=== PATIENT | female | born 1980 | race Caucasian/White ===

== ENCOUNTER → 2016-05-16 | Outpatient (CLI) | payer OTHER ==
[~2016-05-16] MED LIST: ACETAMINOPHEN-H1 TA2 PO; AMOXICILLIN500 MG PO; CIPRO250 MG PO; CLARITIN10 MG PO; DAYPRO600 M1 PO; EPI EZ PEN1 MG/ML IM; FAMOTIDINE20 M1 PO; FIRST-PROGESTE100 MG VG; FIRST-PROGESTE200 MG V; GLUCOPHAGE500 MG PO; HYDR25T PO; HYDROCHLOROTHIA25 MG PO; HYDROCODONE BIT1 T11 PO; LISINOPRIL-HYDR1 TA3 PO; LOMOTIL 0.025 M1 TA1 PO; MEDROL DOSEPAK4 MG PO; METFORMIN500 MG PO; MOTRIN800 MG PO; Motrin,Rufen800 MG PO; NASONEX0.05 MG/AC NAS; NORCO 10-325 T1 EACH PO; NORVASC5 MG PO; PERCOCET 325 MG1 TA5 PO; PERCOCET 325 MG1 TA6 PO; PRENATAL1 TA1 PO; SALETO800 MG PO; SYNTHROID25 MCG PO; ULTRAM50 MG PO; VASOTEC5 MG PO; VICODIN 5/500 505 MG PO; VICODIN 500 MG-1 TAB PO; ZITHROMAX Z PA250 MG PO; ZOFRAN ODT4 MG SL; ZOFRAN4 MG PO; Zofran4 MG PO
--- NOTE | ~2016-05-16 | O ---
[place], [place] OPERATIVE NOTE NAME: [facility]ARCIA [id number] UNIT #: [id number] ROOM: DOCTOR: CARISSA MIN MD BIRTHDATE: [birth year] DOS: 05/23/2016 PREOPERATIVE DIAGNOSES: 1. Desires fertility termination. 2. BMI 48. POSTOPERATIVE DIAGNOSES: 1. Desires fertility termination. 2. BMI 48. OPERATION: Laparoscopic bilateral tubal banding. SURGEON: Carissa Min M.D. ANESTHESIA: General. ESTIMATED BLOOD LOSS: Minimal. REPLACEMENTS: IV fluids. COMPLICATIONS: There were no complications. CONDITION: The patient's condition to recovery stable. OPERATIVE SUMMARY: The patient was taken to the operating room in supine position, general anesthesia, endotracheal intubation, lithotomy position, prepped and draped in routine manner. Catheter was placed within the bladder straight drain. Cervix was grasped with a tenaculum and a cervical manipulator placed. Infraumbilical and suprapubic incisions were made using a longer 5 mm trocar sleeve and laparoscope under direct visualization. This was inserted and CO2 was insufflated. We were able to then introduce a suprapubic 8 mm trocar and sleeve and once this was placed, we examined the pelvis and noted that the uterus itself was overall normal in size and configuration mobility. Anterior and posterior cul-de-sacs were normal. All supporting structures were normal. Tubes and ovaries otherwise were normal. Her ability to evaluate internal laparoscope superiorly was severely compromised due to the BMI, but her gross overall examination of the upper abdomen was within normal limits. At that point, we then introduced through our suprapubic port, the parking ramp attendant because technically we did not feel we were going to be able to perform the bilateral salpingectomy. To that end, we were able to grasp a portion of each fallopian tube in its mid ampullary region. Good knock of tube elevated into the parking ramp attendant and bands placed. Having completed the banding and the survey, we removed the suprapubic trocar sleeve and parking ramp attendant and noted no excessive anterior abdominal bleeding. CO2 was allowed to escape, followed by removal of the infraumbilical trocar sleeve and laparoscope. Each incision was closed with subcuticular 3-0 Monocryl suture. Steri-Strips placed and dressings placed. Instrumentation was removed from the vagina and noting no excessive vaginal bleeding. We removed the instrumentation as well as the catheter. The patient was then cleaned off, taken out of lithotomy position, awakened, extubated, and transferred to recovery in stable condition with stable vital signs, good hemostasis and stable [place], [place] OPERATIVE NOTE NAME: JODIE GARCIA UNIT #: [id number] ROOM: DOCTOR: CARISSA MIN MD BIRTHDATE: [birth year] sponge and instrument count. CARISSA MIN MD CM:OPRECORD:OPERATIVE NOTE [id number] CARISSA MIN MD 05/31/16 1352 ADAM [email or web address].R
--- NOTE | ~2016-05-16 | WRIGHTHP ---
[place], [place] PATIENT HISTORY AND PHYSICAL EXAM NAME: JODIE GARCIA UNIT #: [id number] ROOM: DOCTOR: CARISSA BANERJEE MD BIRTHDATE: [birth year] DOS: DATE OF SURGERY: 05/23/2016. HISTORY OF PRESENT ILLNESS: The patient is a 36-year-old white female, 8, para 3, AB 5 just having completed another miscarriage in April with a D and C on 04/29 who also has a history of an enlarged liver, asthma, PCOS. Is on numerous medications including medication for hypertension as well who was seen in the office on 05/17/2016, quite distraught about having a fifth miscarriage and this one particularly difficult and that they had seen the fetus, but had not been able to detect heartbeat. The patient was quite broken up by this, but really had decided in the past but even now says that enough is enough and would like to proceed with some definitive formal control i.e., sterilization. We reviewed the risks, benefits, indications, potential complications, and alternatives and they called recommendations. Understanding was stated and she did sign a consent for either bilateral tubal banding more bilateral partial salpingectomy. PAST MEDICAL HISTORY: As I said it does reveal 8 pregnancies, three living children, one vaginal delivery and 2 by section as well as miscarriages and then the recent D and C. She has had a cholecystectomy in December 2015, tonsillectomy, lumpectomy in the left breast, 04/29, which actually revealed a benign ulcerated hemangioma. She has a history of asthma. SOCIAL HISTORY: She does not smoke or drink. ALLERGIES: She has no known allergies. MEDICATIONS: The patient is taking several medications including albuterol sulfate HFA ____ solution. She is taking metformin 500 mg extended release daily for her PCOS. Labetalol, clonidine, metoprolol and Norvasc have all been discontinued at this time and the only meds she is taking are the albuterol and metformin. REVIEW OF SYSTEMS: Otherwise stable. FAMILY HISTORY: Reveals her mother to be alive and having a diagnosis of congestive heart failure and cardiomyopathy. She does have a history of an NC as well as diabetes. She has maternal grandfather who has a history of gastric cancer. PHYSICAL EXAMINATION: GENERAL: Reveals a pleasant white female. She is 5 feet 4 inches, 280 pounds, BMI is 48.1. VITAL SIGNS: Blood pressure 136/72 and she is in no significant distress. HEENT: Stable. NECK: Stable. LUNGS: Stable. CARDIAC: Stable. BREASTS: Stable. [place], [place] PATIENT HISTORY AND PHYSICAL EXAM NAME: JODIE GARCIA UNIT #: [id number] ROOM: DOCTOR: CARISSA BANERJEE MD BIRTHDATE: [birth year] ABDOMEN: Consistent with BMI and she has quite a panniculus, but this does reduce and I think we would be able to command underneath this panniculus to be able to perform our procedure as well as using infraumbilical site. The abdomen is nontender. EXTREMITIES: Grossly intact. NEUROLOGIC: Grossly intact. GENITOURINARY: External genitalia, vagina and cervix normal. Uterus is anteverted and anteflexed, normal size, configuration, nontender, and mobile. Adnexa negative. RECTAL: Deferred. ASSESSMENT: 1. The patient who desires sterilization. 2. Significant increase in BMI. 3. Status post recurrent x5. PLAN: The patient will undergo a laparoscopic either bilateral tubal banding or bilateral salpingectomy on 05/23/2015. CARISSA BANERJEE MD CM:HISPHYS:PATIENT HISTORY AND PHYSICAL EXAMINATION 1404 [id number] CARISSA BANERJEE MD 05/31/16 1352 ADAM NEGRETE MIS.LLR
== END | disposition home or self-care (01) ==
LOC: LAB 16:56
DX: O03.9 Complete or unspecified spontaneous abortion without complication (principal); Z3A.00 Weeks of gestation of pregnancy not specified

== ENCOUNTER → 2016-05-23 | Day surgery (SDC) | payer OTHER ==
[~2016-05-23] VITALS: Ht 162.5 cm; Wt 127.0 kg
--- NOTE | ~2016-05-23 | O ---
[place], [place] OPERATIVE NOTE NAME: [id number] UNIT #: [id number] ROOM: DOCTOR: CARISSA MIN MD BIRTHDATE: [birth year] DOS: 05/23/2016 PREOPERATIVE DIAGNOSES: 1. Desires fertility termination. 2. BMI 48. POSTOPERATIVE DIAGNOSES: 1. Desires fertility termination. 2. BMI 48. OPERATION: Laparoscopic bilateral tubal banding. SURGEON: Carissa Min M.D. ANESTHESIA: General. ESTIMATED BLOOD LOSS: Minimal. REPLACEMENTS: IV fluids. COMPLICATIONS: There were no complications. CONDITION: The patient's condition to recovery stable. OPERATIVE SUMMARY: The patient was taken to the operating room in supine position, general anesthesia, endotracheal intubation, lithotomy position, prepped and draped in routine manner. Catheter was placed within the bladder straight drain. Cervix was grasped with a tenaculum and a cervical manipulator placed. Infraumbilical and suprapubic incisions were made using a longer 5 mm trocar sleeve and laparoscope under direct visualization. This was inserted and CO2 was insufflated. We were able to then introduce a suprapubic 8 mm trocar and sleeve and once this was placed, we examined the pelvis and noted that the uterus itself was overall normal in size and configuration mobility. Anterior and posterior cul-de-sacs were normal. All supporting structures were normal. Tubes and ovaries otherwise were normal. Her ability to evaluate internal laparoscope superiorly was severely compromised due to the BMI, but her gross overall examination of the upper abdomen was within normal limits. At that point, we then introduced through our suprapubic port, the tele rn because technically we did not feel we were going to be able to perform the bilateral salpingectomy. To that end, we were able to grasp a portion of each fallopian tube in its mid ampullary region. Good knock of tube elevated into the tele rn and bands placed. Having completed the banding and the survey, we removed the suprapubic trocar sleeve and tele rn and noted no excessive anterior abdominal bleeding. CO2 was allowed to escape, followed by removal of the infraumbilical trocar sleeve and laparoscope. Each incision was closed with subcuticular 3-0 Monocryl suture. Steri-Strips placed and dressings placed. Instrumentation was removed from the vagina and noting no excessive vaginal bleeding. We removed the instrumentation as well as the catheter. The patient was then cleaned off, taken out of lithotomy position, awakened, extubated, and transferred to recovery in stable condition with stable vital signs, good hemostasis and stable [place], [place] OPERATIVE NOTE NAME: JODIE GARCIA UNIT #: [id number] ROOM: DOCTOR: CARISSA MIN MD BIRTHDATE: [birth year] sponge and instrument count. CARISSA MIN MD CM:OPRECORD:OPERATIVE NOTE [id number] CARISSA MIN MD 05/31/16 1352 interface
[2016-05-23 13:32] VITALS: BP 108/71
[2016-05-23 13:47] VITALS: BP 133/62
[2016-05-23 14:02] VITALS: BP 120/62
[2016-05-23 14:17] VITALS: BP 118/64
[2016-05-23 14:32] VITALS: BP 125/53
[2016-05-23 14:47] VITALS: BP 118/56
== END | disposition home or self-care (01) ==
LOC: SDC 05-19 07:47
DX: Z30.2 Encounter for sterilization (principal); I10 Essential (primary) hypertension; J45.909 Unspecified asthma, uncomplicated; Z83.3 Family history of diabetes mellitus; Z82.49 Family history of ischemic heart disease and other diseases of the circulatory system; Z80.0 Family history of malignant neoplasm of digestive organs; Z68.42 Body mass index [BMI] 45.0-49.9, adult

== ENCOUNTER 2018-01-23 17:29 | Inpatient (IN) | payer OTHER ==
[~2018-01-23] VITALS: Ht 162.5 cm; Wt 132.0 kg
--- NOTE | ~2018-01-23 | CON ---
[place], [place] REPORT OF CONSULTATION NAME: JODIE GARCIA UNIT #: [id number] ROOM: 401 DOCTOR: KELLEY NOGUEIRA MD BIRTHDATE: [birth year] DOS: 01/24/2018 HISTORY OF PRESENT ILLNESS: This is a 37-year-old patient who has presented with chief complaint of abdominal pain and lower back pain, 3-month history of diarrhea, out of her control, multiple soiling of her underwear, nocturnal element as well. The patient has been admitted with white blood cell of 10, H and H of 13 and 39. Her lipase is normal. Comprehensive metabolic panel with glucose level elevation to 250, otherwise LFTs, chemistry, BUN and creatinine within normal limits. Her hemoglobin A1c is greater than 7. Lumbar spine, no acute finding. CT scan of the abdomen and pelvis, no acute finding. Hepatic steatosis has been noticed. There is a round region of increased density measuring 4.5 cm in average in dimension anterolaterally in the right lobe and 7 mm at the anterior dome of the right hepatic lobe, these are unchanged from past examination, splenomegaly mildly, and no evidence of pathology in the pancreas. There is an unchanged 2.6 x 3.1 left adrenal adenoma. Her kidneys demonstrate no evidence of acute pathology. No lymphadenopathy seen. Lactic acid normal. PAST MEDICAL HISTORY: Biliary dyskinesia, chronic diarrhea, diabetes mellitus, obesity, hypertension, anxiety, amenorrhea, fatty steatosis of the liver, and splenomegaly, all have been noticed. PAST SURGICAL HISTORY: , tonsillectomy, and cholecystectomy. SOCIAL HISTORY: Social drinker, nonsmoker, nonalcohol consumer. FAMILY HISTORY: Noncontributory. ALLERGIES: To no known medications. MEDICATIONS: Medication list at home including lisinopril, hydrochlorothiazide, levothyroxine, and Lexapro was noticed. REVIEW OF SYSTEMS: In general, HEENT: Denies double vision, blurred vision. RESPIRATORY: Denies acute shortness of breath. CARDIOVASCULAR: Denies acute chest pain. DIGESTIVE SYSTEM: Abdominal pain, bloating, diarrhea, and epigastric distress, all have been recognized. PHYSICAL EXAMINATION: VITAL SIGNS: Stable, nontoxic patient; however, in distress. HEENT: Head normocephalic, nontraumatic. Mouth and buccal mucosa benign. NECK: Supple. No thyromegaly, no cervical lymphadenopathy. CHEST: Symmetric anatomy, equal expansion. No wheeze, no rhonchi. HEART: Normal sinus rhythm. No gallop, no murmur. ABDOMEN: Soft. No hepato-organomegaly. Obese. Bowel sounds present. No pulsatile mass. No rebound effect. EXTREMITIES: 1+ edema was noticed. NEUROLOGIC: Fully alert, oriented to time, place, and person. [place], [place] REPORT OF CONSULTATION NAME: JODIE GARCIA UNIT #: [id number] ROOM: 401 DOCTOR: JERO BRANTLEY,KELLEY BIRTHDATE: [birth year] IMPRESSION: Abdominal pain, diarrhea of 3 months' duration, 7-8 times a day, uncontrollable, and nocturnal element. Other adjunctive diagnoses of fatty liver, splenomegaly, hypothyroidism, anxiety, and hypertension, all have been recognized. Other adjunctive diagnoses as outlined in the paragraph of past medical and surgical history. PLAN AND DISCUSSION: Awaiting C. diff results; if it is negative by tomorrow, then we are going to prep her for EGD and colonoscopy by Monday. KELLEY NOGUEIRA MD CM:CONSTR:REPORT OF CONSULTATION 16 01/25/18 0638 interface
--- NOTE | ~2018-01-23 | O ---
[place], [place] OPERATIVE NOTE NAME: JODIE GARCIA UNIT #: [id number] ROOM: 401 DOCTOR: JERO BRANTLEYMIKEYMIGUE BIRTHDATE: [birth year] DOS: 01/26/2018 HISTORY OF PRESENT ILLNESS: This is a 37-year-old patient who presented with chief complaint of epigastric pain, dyspepsia, abdominal pain. Study is most including hematologic stool study as well as radiologic studies including CT scan of the abdomen. All has been negative. Again, except moderate hepatic steatosis and hepatomegaly as expected and splenomegaly as well, unchanged foci in the liver, still the same consistent with benign findings and most likely has to do with focal nodular hyperplasia and ovarian cyst. PROCEDURE: Today's procedure part of investigation is panendoscopy and colonoscopy. PREMEDICATION: Propofol. SCOPE: Olympus forward-viewing gastroscope Q10 video. REPORT: After putting the patient in left lateral position and application of lubricant to the scope, the scope was introduced. Thereafter, under direct visualization, I advanced through the length of esophagus without difficulty. Gastric pouch was entered. Evidence of bile reflux gastritis seen. Duodenal bulb, second and third part within normal limits. Antral biopsy obtained. The patient extubated, tolerated the procedure well. IMPRESSION: Bile reflux gastritis. PLAN AND DISCUSSION: At the present time, we are going to use Protonix 40 mg daily and if her symptomatology persists, we are going to consider prokinetics. On the other hand, we are concerned that she has diarrhea for past 3 months and that's under investigation or can progress. I am going to proceed with colonoscopy evaluation. PROCEDURE: Today's procedure part of investigation of diarrhea, colonoscopy plus biopsy. PREMEDICATION: Propofol. SCOPE: Olympus forward-viewing colonoscope 10L video. REPORT: After putting the patient in left lateral position and application of lubricant to the scope, the scope was introduced. Thereafter, under direct visualization, I advanced through the length of colon without difficulty. Colon mucosa and vascularity carefully examined. No acute pathology identified throughout the length of the entire colon. Scope was negotiated to base of cecum, ileocecal valve and appendiceal orifice was photographed. Air was suctioned out. Random biopsies obtained to rule out collagenous colitis. The patient extubated, tolerated the procedure well. IMPRESSION: Normal colonoscopic examination, status post random biopsy ruling out infiltrating diseases. [place], [place] OPERATIVE NOTE NAME: JODIE GARCIA UNIT #: [id number] ROOM: 401 DOCTOR: JERO BRANTLEY,KELLEY BIRTHDATE: [birth year] PLAN AND DISCUSSION: At the present time until data is available. As far as tissue biopsy concern, we are going to use Questran 1 pack daily and symptomatic therapy in addition to the dicyclomine 10 mg daily and clinical reassessment. KELLEY NOGUEIRA MD CM:OPRECORD:OPERATIVE NOTE [id number] KELLEY NOGUEIRA MD 02/16/18 0933 interface
[2018-01-23 17:34] VITALS: BP 164/88
[2018-01-23 18:07] LABS: BASO # 0.1 10*3/uL (0.0-0.1); BASO % 0.5 % (0.0-1.0); EOS # 0.2 10*3/uL (0.0-0.4); EOS % 2.1 % (1.0-4.0); HEMATOCRIT 39.8 % (37.0-47.0); HEMOGLOBIN 13.2 g/dl (12.0-16.0); LYMPH % 28.5 % (27.0-41.0); MEAN CORPUSCULAR HGB 27.8 pg (27.0-31.0); MEAN CORPUSCULAR HGB CONC 33.2 g/dl (33.0-37.0); MEAN PLATELET VOLUME 10.1 fl (9.6-12.3); MONO # 0.7 10*3/uL (0.1-1.0); MONO % 6.5 % (3.0-9.0); NEUT # 6.4 10*3/uL (2.3-7.9); PLATELET COUNT AUTOMATED 286 10*3/uL (130-400); RED BLOOD COUNT 4.74 10*6/uL (4.10-5.10); RED CELL DISTRI WIDTH 14.3 % (0-14.5); WHITE BLOOD COUNT 10.4 10*3/uL (4.8-10.8)
[2018-01-23 18:23] LABS: ALBUMIN 3.3 gm/dl (3.1-4.5); ALKALINE PHOSPHATASE 105 U/L (45-117); BUN 17 mg/dl (7-24); CHLORIDE 103 mmol/L (98-107); CREATININE 0.85 mg/dL (0.55-1.02); POTASSIUM 3.9 mmol/L (3.5-5.1); SGOT/AST 20 IU/L (3-35); SGPT/ALT 35 U/L (12-78); SODIUM 139 mmol/L (136-145); TOTAL PROTEIN 7.3 gm/dL (6.4-8.2)
[2018-01-23 19:08] LABS: BILIRUBIN NEGATIVE (NEGATIVE); BLOOD NEGATIVE (NEGATIVE); CLARITY CLEAR (CLEAR); COLOR YELLOW (YELLOW); GLUCOSE 2+ (NEGATIVE); KETONE NEGATIVE (NEGATIVE); LEUKO ESTERASE NEGATIVE (NEGATIVE); NITRITE NEGATIVE (NEGATIVE); PH 5.5 (5.0-9.0); SPECIFIC GRAVITY 1.025 (1.005-1.030); UROBILINOGEN 0.2 E.U./dl (0.2-1.0)
[2018-01-23 19:15] LABS: BACTERIA 1+
[2018-01-23 19:59] VITALS: BP 117/56
[2018-01-23 21:30] VITALS: BP 135/63
[2018-01-23] MEDS ORDERED: HYDRALAZINE HYD50 MG PO (21:51)
[2018-01-23] MEDS ORDERED: LEXAPRO20 MG PO (22:00)
[2018-01-24] VITALS: BP 131/74
[2018-01-24 06:15] LABS: BASO # 0.1 10*3/uL (0.0-0.1); BASO % 0.6 % (0.0-1.0); EOS # 0.2 10*3/uL (0.0-0.4); EOS % 2.8 % (1.0-4.0); HEMATOCRIT 39.7 % (37.0-47.0); HEMOGLOBIN 12.6 g/dl (12.0-16.0); LYMPH # 3.3 10*3/uL (1.3-4.4); LYMPH % 38.2 % (27.0-41.0); MEAN CELL VOLUME 86.1 fl (81.0-99.0); MEAN CORPUSCULAR HGB 27.3 pg (27.0-31.0); MEAN CORPUSCULAR HGB CONC 31.7 g/dl (33.0-37.0); MEAN PLATELET VOLUME 10.2 fl (9.6-12.3); MONO # 0.6 10*3/uL (0.1-1.0); MONO % 6.6 % (3.0-9.0); NEUT # 4.5 10*3/uL (2.3-7.9); NEUT % 51.3 % (47.0-73.0); PLATELET COUNT AUTOMATED 250 10*3/uL (130-400); RED BLOOD COUNT 4.61 10*6/uL (4.10-5.10); RED CELL DISTRI WIDTH 14.5 % (0-14.5); WHITE BLOOD COUNT 8.7 10*3/uL (4.8-10.8)
[2018-01-24 06:29] LABS: ALKALINE PHOSPHATASE 83 U/L (45-117); BUN 20 mg/dl (7-24); CHLORIDE 107 mmol/L (98-107); CHOLESTEROL 141 mg/dL (<200); CREATININE 0.59 mg/dL (0.55-1.02); HDL CHOLESTEROL 36 mg/dl (40-60); LDL CHOLESTEROL 68 mg/dL (9-159); PHOSPHOROUS 4.2 mg/dL (2.5-4.9); POTASSIUM 4.1 mmol/L (3.5-5.1); SGOT/AST 18 IU/L (3-35); SGPT/ALT 31 U/L (12-78); SODIUM 141 mmol/L (136-145); TOTAL PROTEIN 6.5 gm/dL (6.4-8.2); TRIGLYCERIDES 184 mg/dl (<150); VLDL CHOLESTEROL 37 mg/dL (6-40)
[2018-01-24 06:48] LABS: ACT PARTIAL THROMBO TIME 26.1 SECONDS (20.8-31.5)
[2018-01-24 07:57] LABS: VITAMIN D, 25-HYDROXY 11.8 ng/mL (30-100)
[2018-01-24 16:00] VITALS: BP 134/70
[2018-01-24 20:00] VITALS: BP 110/59
[2018-01-25] VITALS: BP 111/50
[2018-01-25 06:13] LABS: BASO % 0.4 % (0.0-1.0); EOS # 0.2 10*3/uL (0.0-0.4); EOS % 2.6 % (1.0-4.0); HEMATOCRIT 34.7 % (37.0-47.0); HEMOGLOBIN 11.2 g/dl (12.0-16.0); LYMPH % 33.1 % (27.0-41.0); MEAN CELL VOLUME 85.9 fl (81.0-99.0); MEAN CORPUSCULAR HGB 27.7 pg (27.0-31.0); MEAN CORPUSCULAR HGB CONC 32.3 g/dl (33.0-37.0); MEAN PLATELET VOLUME 9.9 fl (9.6-12.3); MONO # 0.7 10*3/uL (0.1-1.0); MONO % 7.5 % (3.0-9.0); NEUT # 5.1 10*3/uL (2.3-7.9); NEUT % 55.3 % (47.0-73.0); PLATELET COUNT AUTOMATED 230 10*3/uL (130-400); RED BLOOD COUNT 4.04 10*6/uL (4.10-5.10); RED CELL DISTRI WIDTH 14.3 % (0-14.5); WHITE BLOOD COUNT 9.2 10*3/uL (4.8-10.8)
[2018-01-25 06:30] LABS: BUN 11 mg/dl (7-24); CHLORIDE 105 mmol/L (98-107); CREATININE 0.57 mg/dL (0.55-1.02); POTASSIUM 3.8 mmol/L (3.5-5.1); SODIUM 140 mmol/L (136-145)
[2018-01-25 08:00] VITALS: BP 106/50; BP 153/57
[2018-01-25 12:00] VITALS: BP 116/68
[2018-01-25 16:00] VITALS: BP 113/44
[2018-01-25 20:00] VITALS: BP 91/44
[2018-01-26] VITALS (8 sets, daily range): BP systolic 99–121; BP diastolic 48–71
[2018-01-26] MEDS ORDERED: BELSOMRA10 MG PO (20:29)
[2018-01-27] VITALS: BP 122/58
[2018-01-27 06:53] LABS: BASO % 0.5 % (0.0-1.0); EOS # 0.2 10*3/uL (0.0-0.4); EOS % 2.6 % (1.0-4.0); HEMATOCRIT 34.9 % (37.0-47.0); HEMOGLOBIN 11.1 g/dl (12.0-16.0); LYMPH # 2.7 10*3/uL (1.3-4.4); LYMPH % 36.2 % (27.0-41.0); MEAN CORPUSCULAR HGB 27.3 pg (27.0-31.0); MEAN CORPUSCULAR HGB CONC 31.8 g/dl (33.0-37.0); MEAN PLATELET VOLUME 11.1 fl (9.6-12.3); MONO # 0.6 10*3/uL (0.1-1.0); MONO % 7.7 % (3.0-9.0); NEUT # 3.9 10*3/uL (2.3-7.9); NEUT % 52.7 % (47.0-73.0); PLATELET COUNT AUTOMATED 209 10*3/uL (130-400); RED BLOOD COUNT 4.06 10*6/uL (4.10-5.10); RED CELL DISTRI WIDTH 14.1 % (0-14.5); WHITE BLOOD COUNT 7.4 10*3/uL (4.8-10.8)
[2018-01-27 07:16] LABS: BUN 8 mg/dl (7-24); CHLORIDE 108 mmol/L (98-107); CREATININE 0.53 mg/dL (0.55-1.02); POTASSIUM 3.5 mmol/L (3.5-5.1); SODIUM 141 mmol/L (136-145)
[2018-01-27] MEDS ORDERED: QUESTRAN LIGHT4 GM PO (08:17)
[2018-01-27] MEDS ORDERED: DICYCLOMINE HCL10 MG PO (08:17)
[2018-01-27] MEDS ORDERED: PROTONIX40 MG PO (10:39)
== END 2018-01-27 11:19 | disposition home or self-care (01) | DRG 392 ==
LOC: ED 17:29 → EDHOLD 20:20 → 4E 20:20
PROVIDERS: Internal Medicine; Nurse Practitioner Family
PROC: 0DBE8ZX Excision of Large Intestine, Via Natural or Artificial Opening Endoscopic, Diagnostic (ICD-10-PCS; principal; 2018-01-26)
PROC: 0DB68ZX Excision of Stomach, Via Natural or Artificial Opening Endoscopic, Diagnostic (ICD-10-PCS; principal; 2018-01-26)
DX: K29.70 Gastritis, unspecified, without bleeding (principal); E87.2 Acidosis; E44.1 Mild protein-calorie malnutrition; Z68.42 Body mass index [BMI] 45.0-49.9, adult; M54.5 Low back pain; K76.0 Fatty (change of) liver, not elsewhere classified; R16.1 Splenomegaly, not elsewhere classified; E28.2 Polycystic ovarian syndrome; I10 Essential (primary) hypertension; E03.9 Hypothyroidism, unspecified; K52.9 Noninfective gastroenteritis and colitis, unspecified; D35.01 Benign neoplasm of right adrenal gland; E04.1 Nontoxic single thyroid nodule; K76.9 Liver disease, unspecified; J42 Unspecified chronic bronchitis; F41.9 Anxiety disorder, unspecified; K21.9 Gastro-esophageal reflux disease without esophagitis; E78.1 Pure hyperglyceridemia; K82.8 Other specified diseases of gallbladder; E55.9 Vitamin D deficiency, unspecified; E11.65 Type 2 diabetes mellitus with hyperglycemia; E66.01 Morbid (severe) obesity due to excess calories; J45.909 Unspecified asthma, uncomplicated; Z79.899 Other long term (current) drug therapy; Z90.49 Acquired absence of other specified parts of digestive tract; Z90.89 Acquired absence of other organs; Z82.49 Family history of ischemic heart disease and other diseases of the circulatory system; Z81.8 Family history of other mental and behavioral disorders

== ENCOUNTER 2018-11-24 20:48 | Inpatient (IN) | payer OTHER ==
[~2018-11-24] VITALS: Ht 162.5 cm; Wt 131.9 kg
--- NOTE | ~2018-11-24 | PR ---
[place], [place] PROGRESS NOTE NAME: JODIE GARCIA UNIT #: [id number] ROOM: 515 DOCTOR: BRUCE MATA MD,KATIE BIRTHDATE: [birth year] DOS: 11/27/2018 PULMONARY PROGRESS NOTE SUBJECTIVE: The patient was seen and examined on 11/27/2017, has not been noted any ongoing acute new respiratory complaints. The patient has not been noted with any acute chest pain. Shortness of breath of the patient continues to improve progressively and gradually. The cough has been improving. The wheezing was improved markedly. OBJECTIVE: VITAL SIGNS: Normal temperature, respiratory rate 16, heart rate 66, blood pressure of 98/44. Pulse oxygen saturation recorded on BiPAP, was 98% on 2 liters nasal cannula 98% saturation. HEENT: Examination shows head was atraumatic. Eyes nonicterus. NECK: Supple. CARDIOVASCULAR: S1, S2 audible. LUNGS: The patient was noted without any wheezing or crackles at this time. Breaths are noted mildly diminished bilaterally. ABDOMEN: Soft, nontender, bowel sounds present. EXTREMITIES: No edema. IMPRESSION: Progressive and gradual resolution of acute exacerbation of bronchial asthma was noted with diagnosis of obstructive sleep apnea disorder as well. PLAN OF TREATMENT: The patient could be transferred from the ICU to the surgical floor. Decrease corticosteroids. Possible discharge in the morning depending on further improvement in respiratory symptoms. Outpatient assessment for sleep apnea and pulmonary disease will be done after discharge. KATIE BARRERA MD CM:PNCLARI [id number] KATIE MATA MD 12/05/18 0855 interface
--- NOTE | ~2018-11-24 | CON ---
[place], [place] REPORT OF CONSULTATION NAME: JODIE GARCIA UNIT #: [id number] ROOM: 515 DOCTOR: KATIE PECK MD BIRTHDATE: [birth year] DOS: 11/25/2018 PULMONARY CONSULTATION, EVALUATION, AND MANAGEMENT REASON FOR CONSULTATION: To assess the patient for acute exacerbation of bronchial asthma. HISTORY OF PRESENT ILLNESS: This is a 38-year-old white female patient reported history of seasonal bronchial asthma. She has been noted acutely ill for the past couple of weeks and has been treated with corticosteroids, antibiotics, and other medical management provided by the patient's primary care physician. The patient has not responding to the treatment and came to the Emergency Room, where she has been assessed yesterday, admitted to the hospital, this morning the patient was assessed, she has been noted significantly with severe short of breath with inability to complete sentences at this time as well with interview. She has been reported symptoms of excessive chest congestion and nonproductive cough. Denies symptoms of chest pain with that, but tightness in the chest was reported. She was complaining of excessive wheezing. She was complaining of cough without any sputum expectoration. In the Emergency Room, she was given epinephrine, DuoNeb, continue treatment, multiple other interventions were provided already. She has been admitted to the medical floor this morning of assessment. PAST MEDICAL HISTORY: Noted as: 1. History of type 2 diabetes mellitus. 2. History of morbid obesity. 3. Hepatic steatosis. 4. Essential hypertension. 5. Hypertriglyceridemia. 6. Hypothyroidism. 7. Liver lesions. 8. Polycystic ovarian syndrome. 9. History of splenomegaly. 10. Vitamin D deficiency. 11. Adrenal adenoma. 12. History of longstanding bronchial asthma stated as seasonal asthma, treated usually with bronchodilators p.r.n. use. PAST SURGICAL HISTORY: Noted as: 1. Tonsillectomy. 2. Adenoidectomy. 3. . 4. Cholecystectomy. HOME MEDICATIONS: Home medications listed as: Questran, dicyclomine, Lexapro, Synthroid, lisinopril, hydrochlorothiazide, Protonix, and Belsomra. CURRENT MEDICATIONS: Current medications administered were noted as albuterol sulfate with nebulizer, Seroquel, citalopram, hydrochlorothiazide, lisinopril, Victoza injection, vitamin D, Solu-Medrol 40 mg b.i.d., Lovenox, glipizide, [place], [place] REPORT OF CONSULTATION NAME: JODIE GARCIA UNIT #: [id number] ROOM: [facility] DOCTOR: KATIE PECK MD BIRTHDATE: [birth year] levothyroxine, Levaquin, and others. DRUG ALLERGIES: No known drug allergies. SOCIAL HISTORY: The patient has been . She has 3 children, lives at home. She is a nonsmoker lifetime. There was no history of alcohol use or any illicit drugs. FAMILY HISTORY: The patient's father of suicide. Mother has been noted with history of cardiomyopathy and reported age of 5858 years old. REVIEW OF SYSTEMS: CONSTITUTIONAL SYMPTOMS: Fatigue and tiredness noted without any symptoms of fever or chills. EYES: Denies any burning, redness, or tenderness. EAR, NOSE, AND THROAT SYMPTOMS: No sore throat, hoarseness, otalgia, postnasal drainage, or epistaxis. CARDIOVASCULAR SYSTEM: Denies angina pain, edema, or pain of the lower extremities. GASTROINTESTINAL SYMPTOMS: No dysphagia, nausea, vomiting, diarrhea, abdominal pain, hematemesis, melena, or hematochezia. SKIN: Denies lesions or rashes. CENTRAL NERVOUS SYSTEM: No dizziness, headache, diplopia, or syncopal episodes. Remaining systems were reviewed and they were noted all negative. PHYSICAL EXAMINATION: GENERAL: The patient is a 38-year-old white female noted with respiratory distress this morning of assessment on side of the bed. Height of 5 feet 4 inches, weight of 131 kilograms, and BMI of 49.9. VITAL SIGNS: Vital signs of the patient, normal temperature, respiratory rate of 24, heart rate of 130 with sinus tachycardia, and blood pressure of 120/84. Pulse oxygen saturation is recorded on 2 liters nasal cannula is 95% saturation. HEENT: On examination, head was atraumatic. Eyes nonicterus. NECK: Supple. Decreased posterior pharyngeal space, high tongue base, and crowding of soft tissue structures. CARDIOVASCULAR SYSTEM: S1, S2 is audible. LUNGS: Diffuse expiratory wheezing, decreased air exchange. ABDOMEN: Soft, nontender. Bowel sounds present. EXTREMITIES: Noted without any acute edema. MUSCULOSKELETAL: Noted without any acute deformities. CENTRAL NERVOUS SYSTEM: Cranial nerves 2-12 intact. LABORATORY DATA: PT and INR yesterday were noted as normal. CMP yesterday, glucose is 234, normal BUN and creatinine, and potassium is 3.4. CBC yesterday, WBC count is 18.2, hemoglobin and hematocrit normal, and 42% lymphocytes. Lactic acid was noted as 3.5 and elevated, progressive later on. CBC that was done on 11/25/2018, WBC count is 11.5, hemoglobin and hematocrit normal. BMP, BUN is 70, creatinine is 1.04, glucose is 369, this morning CO2 was 18. The CBC this morning, WBC count is 11.5, hemoglobin and hematocrit remains normal. The eosinophil from yesterday labs was noted as 2%. [place], [place] REPORT OF CONSULTATION NAME: JODIE GARCIA UNIT #: [id number] ROOM: [facility] DOCTOR: ERAN PECK MDM BIRTHDATE: [birth year] IMAGING DATA: The patient has a chest x-ray, 1 view, which was done in the Emergency Room, limited view, but does not show any acute pulmonary infiltration. IMPRESSION: 1. Discharge the patient with acute respiratory failure noted with respiratory distress secondary to acute exacerbation of bronchial asthma, nonresolution at this time. 2. Lactic acidosis, most likely secondary to use of albuterol sulfate, sympathomimetic agents in addition to excessive muscle use as well and work of breathing. 3. The patient with morbid obesity with possible consideration of obstructive sleep apnea disorder. 4. History of hypothyroidism as well. 5. Type 2 diabetes mellitus, noted uncontrolled on admission. 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 PLAN OF MANAGEMENT: The patient has been transferred to Intensive Care Unit, arterial blood gases ordered, she will be started on the BiPAP as well. The dose of Solu-Medrol will be increased as well. Continue bronchodilators. Stop chasing the lactic acid at this time. Antibiotic would be continued as well. Monitor all the culture results. Other additional treatment changes will be made based on progression of the illness. DVT prophylaxis. Thanks for allowing me to participate in the care of this patient. KATIE BARRERA MD CM:CONSTR:REPORT OF CONSULTATION 1101 11/28/18 0738 interface
--- NOTE | ~2018-11-24 | PR ---
[place], [place] PROGRESS NOTE NAME: JODIE GARCIA UNIT #: [id number] ROOM: [facility] DOCTOR: BRUCE MATA MD,KATIE BIRTHDATE: [birth year] DOS: 11/26/2018 SUBJECTIVE: The patient was transferred to the Intensive Care Unit yesterday. Arterial blood gas was done, which was showing significant evidence of metabolic acidosis. Further lactic acid assessment was discontinued. She has been ordered the BiPAP as well that will be used by the setting of 26/12. She has reported marked improvement in the resolution of the acute respiratory symptoms in the past and followup with the wheezing, shortness of breath, coughing has improved. She was not gasping for breath further at the present time. Denies symptoms of hemoptysis. Denies symptoms of headache or diplopia, nausea, vomiting, diarrhea, abdominal pain. High dose of corticosteroids were also continued as well. Review of systems: Remaining systems were reviewed and they were noted all. PHYSICAL EXAMINATION: VITAL SIGNS: Normal temperature, respiratory rate 22, heart rate 86%. The pulse oxygen saturation on room air as 96% saturation this morning. Previous on BiPAP 98% saturation. HEAD, EYES, EARS, NOSE, AND THROAT: Examination shows head was atraumatic. Eye nonicterus. NECK: Supple. It was obese. Decreased posterior pharyngeal space, high tongue base and crowding of soft tissue structures. CARDIOVASCULAR SYSTEM: S1, S2 is audible. LUNGS: Noted with decreased breath sounds in the lungs bilaterally. Expiratory wheezing was noted decreased, but not resolved completely. ABDOMEN: Soft and obese. EXTREMITIES: Without acute edema. MUSCULOSKELETAL: Without acute deformities. CENTRAL NERVOUS SYSTEM: Cranial nerves 2-12 intact. LABORATORY DATA: The BMP that was done, glucose 331, BUN and creatinine was normal. The CBC that was done on 11/26/2018, WBC count 12.6, hemoglobin 11.7, platelet count 235,000. IMPRESSION: 1. The patient who has currently noted stable at the present time with improvement in the acute exacerbation of bronchial asthma, acute bronchitis. 2. Chronic morbid obesity. 3. Suspicion of obstructive sleep apnea disorder. 4. Lactic acidosis accessory muscle and work of breathing. PLAN OF MANAGEMENT: Continuation of the bronchodilators, oxygen supplementation, use of current steroid, use of the BiPAP as previously ordered. The patient could be transferred from the intensive care unit to a medical telemetry floor. Reduction of corticosteroids probably will be started tomorrow. Usual care. Other additional treatment changes will be made based on progression of the illness. [place], [place] PROGRESS NOTE NAME: JODIE GARCIA UNIT #: [id number] ROOM: [facility] DOCTOR: BRUCE MATA MD,KATIE BIRTHDATE: [birth year] KATIE BARRERA MD CM:PNCLARI [id number] KATIE MATA MD 11/27/18 1318 interface
--- NOTE | ~2018-11-24 | PR ---
[place], [place] PROGRESS NOTE NAME: JODIE GARCIA UNIT #: [id number] ROOM: 515 DOCTOR: BRUCE MATA MD,KATIE BIRTHDATE: [birth year] DOS: 11/28/2018 SUBJECTIVE: She has been showing continued progressive improvement in the respiratory symptoms, noted essentially almost complete resolution of wheezing. There was no coughing stated by the patient. There were no symptoms of chest pain, fever or chills. OBJECTIVE: VITAL SIGNS: Normal temperature, respiratory rate 16, heart rate 90, blood pressure 121/44. The pulse oxygen saturation on room air was 96% saturation. HEENT: Examination shows head was atraumatic. Eyes nonicterus. NECK: Supple. CARDIOVASCULAR: S1, S2 audible. LUNGS: The patient was noted without any wheeze or crackles. ABDOMEN: Soft, obese, nontender. EXTREMITIES: No acute change. IMPRESSION: 1. Progressive and gradual resolution of acute exacerbation of bronchial asthma. 2. Suspected diagnosis of obstructive sleep apnea disorder. PLAN OF TREATMENT: The patient could be discharged home today and to be followed up in the office. KATIE BARRERA MD CM:PNTRANS [id number] KATIE MATA MD 12/05/18 0856 interface
--- NOTE | ~2018-11-24 | EKG ---
[place], [place] ELECTROCARDIOGRAM REPORT NAME: JODIE GARCIA UNIT #: [id number] ROOM: [facility] DOCTOR: FAIZAN DRAFT REPORT BIRTHDATE: [birth year] [facility] Test Date: 2018-11-24 Test Time: 21:08:56 Pat Name: JODIE GARCIA Department: Room: [facility] Gender: F Director Hardware: Mario Cao : 1980 Requested By: JOCE CLEVELAND PA-C Order Number: [id number] Reading MD: Tona Wilkins Measurements Intervals [place] Rate: 90 P: 47 MD: 156 QRS: -13 QRSD: 87 T: 29 QT: 357 QTc: 437 Interpretive Statements Sinus rhythm LVH by voltage Electronically Signed On 11-25-2018 9:50:50 PDT by Tona Wilkins CM:EKGRPT:ELECTROCARDIOGRAM REPORT 07 0950 JOCE CLEVELAND PA-C EPIPHCRISTOPHER DRAFT REPORT JOCE CLEVELAND PA-C
[2018-11-24 20:48] VITALS: BP 112/60
[~2018-11-24 20:48] MED LIST changes: +BELSOMRA10 MG PO; +DICYCLOMINE HCL10 MG PO; +DOXYCYCLINE HY100 M3 PO; +HYDRALAZINE HYD50 MG PO; +LEXAPRO20 MG PO; +PROTONIX40 MG PO; +QUESTRAN LIGHT4 GM PO
[2018-11-24 21:40] LABS: HEMOGLOBIN 13.3 g/dl (12.0-16.0); MEAN CELL VOLUME 87.5 fl (81.0-99.0); MEAN CORPUSCULAR HGB 29.1 pg (27.0-31.0); MEAN CORPUSCULAR HGB CONC 33.3 g/dl (33.0-37.0); MEAN PLATELET VOLUME 10.3 fl (9.6-12.3); PLATELET COUNT AUTOMATED 310 10*3/uL (130-400); RED BLOOD COUNT 4.57 10*6/uL (4.10-5.10); RED CELL DISTRI WIDTH 13.9 % (0-14.5); WHITE BLOOD COUNT 18.2 10*3/uL (4.8-10.8)
[2018-11-24 21:50] LABS: INTERNATIONAL NORM RATIO 0.9 (2.0-3.5)
[2018-11-24 21:58] LABS: ALBUMIN 3.4 gm/dl (3.1-4.5); ALKALINE PHOSPHATASE 124 U/L (45-117); BUN 20 mg/dl (7-24); CHLORIDE 106 mmol/L (98-107); CREATININE 0.83 mg/dL (0.55-1.02); POTASSIUM 3.4 mmol/L (3.5-5.1); SGOT/AST 24 IU/L (3-35); SGPT/ALT 58 U/L (12-78); SODIUM 140 mmol/L (136-145); TOTAL PROTEIN 7.6 gm/dL (6.4-8.2)
--- NOTE | 2018-11-24 22:01 | NUR ---
Notifed by lab, Pt lactic acid of 3.5, Christine TRIMBLE notifed.
[2018-11-24 22:02] LABS: TROPONIN I < 0.015 ng/ml (<0.045)
[2018-11-24 22:03] LABS: TOTAL CELLS COUNTED 100 #CELLS
[2018-11-24 22:04] LABS: PLATELET SUFFICIENCY NORMAL (NORMAL)
[2018-11-24 23:08] VITALS: BP 136/73
[2018-11-25] VITALS (7 sets, daily range): BP systolic 112–145; BP diastolic 44–84
--- NOTE | 2018-11-25 00:43 | NUR ---
Notifed by lab, Pt lactic acid of 4.6, Dr Cannon notifed.
--- NOTE | 2018-11-25 00:45 | NUR ---
DR MOORE MADE AWARE OF PT INCREASE IN HR AND C/O DIFFICULTY BREATHING.RESPIRATORY NOTIFIED AND DUONEB ADMINISTERED PER MD MOORE.
--- NOTE | 2018-11-25 01:04 | NUR ---
DR MOORE AT [facility] TO REASSESS PT.
--- NOTE | 2018-11-25 01:19 | NUR ---
PT PROVIDED BEDSIDE TOILET.
--- NOTE | 2018-11-25 01:34 | NUR ---
SLAB INSTALLER CONTACTED FOR MEDICATION OF MAGNESIUM SULFATE.
--- NOTE | 2018-11-25 01:45 | NUR ---
PT ASSISSTED ON AND OFF BEDSIDE TOILET.SUPPORT PERSON AT BEDSIDE.PT PROVIDED DRINK OF WATER.CALL COOK IS WITHIN REACH.PT DENIES ANY OTHER NEEDS AT THIS TIME.
--- NOTE | 2018-11-25 02:24 | NUR ---
CONTENT DEVELOPMENT SPECIALIST PROVIDED TWO 1GRAM BAG MAGNESIUM SULFATE FOR EMAR ORDER.1ST BAG MAG SULFATE INITIATED.
--- NOTE | 2018-11-25 02:42 | NUR ---
DR. MOORE NOTIFIED OF LA OF 5.5
--- NOTE | 2018-11-25 03:07 | NUR ---
RESPIRATORY AT BEDSIDE FOR BREATHING TX.
--- NOTE | 2018-11-25 03:07 | NUR ---
PT REPORTS SHE FEELS BETTER.
[2018-11-25] MEDS ORDERED: PROAIR HFA8.5 GM INH (03:12)
[2018-11-25] MEDS ORDERED: QUETIAPINE FUMA50 M1 PO (03:13)
[2018-11-25] MEDS ORDERED: GLIPIZIDE5 MG PO (03:13)
[2018-11-25] MEDS ORDERED: LISINOPRIL-HCT1 EACH PO (03:14)
--- NOTE | 2018-11-25 03:29 | NUR ---
INFUSION OF 1ST BAG OF 1GM MAG SULFATE COMPLETED.SECOND BAG OF 1 GM MAG SULFATE INITIATED.
--- NOTE | 2018-11-25 04:47 | NUR ---
INFUSION OF SECOND BAG 1GM MAG SULFATE COMPLETED.IV FLUSHED.HEPLOCK IN PLACE.PT RECEIVING BREATHING TX ADMINISTERED BY RESPIRATORY AT THIS TIME.PT REPORTS SOB WITH EXERTION WHILE USING BEDSIDE TOILET.
--- NOTE | 2018-11-25 05:05 | NUR ---
REPORT RECEIVED FROM MELINA, PREVIOUS RN AT THIS TIME. VSS, WILL CONTINUE TO MONITOR.
[2018-11-25 05:59] LABS: BASO % 0.3 % (0.0-1.0); HEMATOCRIT 38.5 % (37.0-47.0); HEMOGLOBIN 12.7 g/dl (12.0-16.0); LYMPH # 1.5 10*3/uL (1.3-4.4); LYMPH % 12.7 % (27.0-41.0); MEAN CELL VOLUME 89.5 fl (81.0-99.0); MEAN CORPUSCULAR HGB 29.5 pg (27.0-31.0); MEAN PLATELET VOLUME 10.7 fl (9.6-12.3); MONO # 0.1 10*3/uL (0.1-1.0); MONO % 1.2 % (3.0-9.0); NEUT # 9.7 10*3/uL (2.3-7.9); NEUT % 84.8 % (47.0-73.0); PLATELET COUNT AUTOMATED 252 10*3/uL (130-400); RED CELL DISTRI WIDTH 14.1 % (0-14.5); WHITE BLOOD COUNT 11.5 10*3/uL (4.8-10.8)
--- NOTE | 2018-11-25 05:59 | NUR ---
CRITICAL LAB LA 7.9 NOTIFIED.
--- NOTE | 2018-11-25 06:04 | NUR ---
DR. MOORE NOTIFIED OF CRITICAL LA OF 7.9
[2018-11-25 06:18] LABS: BUN 17 mg/dl (7-24); CHLORIDE 105 mmol/L (98-107); CHOLESTEROL 155 mg/dL (<200); CREATININE 1.04 mg/dL (0.55-1.02); HDL CHOLESTEROL 47 mg/dl (40-60); LDL CHOLESTEROL 89 mg/dL (9-159); PHOSPHOROUS 3.6 mg/dL (2.5-4.9); POTASSIUM 3.7 mmol/L (3.5-5.1); SODIUM 138 mmol/L (136-145); TRIGLYCERIDES 94 mg/dl (<150); VLDL CHOLESTEROL 19 mg/dL (6-40)
[2018-11-25 06:24] LABS: THYROID STIM HORMONE (HS) 0.359 uIU/ml (0.358-4.75)
[2018-11-25 06:56] LABS: VITAMIN D, 25-HYDROXY 16.6 ng/mL (30-100)
[2018-11-25] MEDS ORDERED: VICTOZA 3-PAK6 MG/ML SC (07:21)
--- NOTE | 2018-11-25 10:45 | NUR ---
PT ARRIVED VIA BED FROM , WHERE SHE WAS ADMITTED FOLLOWING A STAY IN ED-HOLD OVERNIGHT. SHE HAS A TIGHT, NON-PRODUCTIVE COUGH WITH VERY LITTLE AIR MOVEMENT. SHE'S ALERT AND ORIENTED. IV FLUIDS INFUSING PER ORDER.
[2018-11-25 11:34] LABS: ABG HCO3 17.3 mmol/l (22-26); ABG O2 SATURATION 97.1 % (95-97); ARTERIAL BLOOD GAS PCO2 32.2 mmHg (35-45); ARTERIAL BLOOD GAS PH 7.35 (7.35-7.45); ARTERIAL BLOOD GAS PO2 96.2 mmHg (80-90)
--- NOTE | 2018-11-25 11:35 | NUR ---
[facility]'S RT RADIAL FOLLOWING P/P AND SUCCESSFUL MANUEL'S TEST. TOLERATED WELL.
[2018-11-25 11:36] LABS: ABG BASE EXCESS -6.8 mmol/L (-2.0-2.0)
--- NOTE | 2018-11-25 11:57 | NUR ---
DR BARRERA CALLED WITH [facility] RESULTS AND ASSESSMENT. ORDERS RECEIVED.
--- NOTE | 2018-11-25 13:22 | NUR ---
BIPAP IS ON, BUT PT NOT SLEEPING.
--- NOTE | 2018-11-25 14:09 | NUR ---
PT STATES "THIS (BIPAP) DOES MAKE IT EASIER TO BREATHE".
--- NOTE | 2018-11-25 16:57 | NUR ---
AWAKENED FROM SOUNDLY SLEEPING TO ORDER DINNER.
--- NOTE | 2018-11-25 17:31 | NUR ---
BIPAP IS OFF AWAITING DINNER. FREQUENT HACKING COUGH.
--- NOTE | 2018-11-25 18:45 | NUR ---
PT HAD HER CALL LIGHT ON. HER FACE WAS RED, HER HEART RATE 130'S. SHE HAD A HARD TIME TALKING, SAYING "I'M HAVING A HARD TIME". HER PULSE OX WAS GREATER THAN 92. BIPAP APPLIED AND REASSURANCES GIVEN. WITHIN MINUTES HER HEART RATE TO 80'S AND RESPIRATIONS EASED. "I CAN FEEL IT OPENING UP".
--- NOTE | 2018-11-25 21:45 | NUR ---
PATIENT MEDICATED WITH 1 TIME DOSE OF ATIVEN PER DRS ORDERS FOR COMPLAINTS OF ANXIETY AND NERVOUSNESS. RN WILL MONITOR FOR EFFECTIVENESS
--- NOTE | 2018-11-25 22:55 | NUR ---
PATIENT RESTING WITH EYES CLOSED AT THIS TIME, APPEARS TO E SLEEPING. BIPAP IS ON THE PATIENT AT THIS TIME. APPEARS TO BE TOLERATING WELL. CALL LIGHT WITHIN REACH. RN WILL CONTINUE TO MONITOR
[2018-11-26] VITALS: BP 101/46
--- NOTE | 2018-11-26 02:35 | NUR ---
PATIENT STILL SLEEPING, NO SIGNS OR SYMPTOMS OF DISTRESS ON BIPAP AT THIS TIME. CALL LIGHT WITHIN REACH.
[2018-11-26 04:00] VITALS: BP 110/43
[2018-11-26 04:40] LABS: BASO % 0.1 % (0.0-1.0); HEMATOCRIT 35.9 % (37.0-47.0); HEMOGLOBIN 11.7 g/dl (12.0-16.0); LYMPH # 1.7 10*3/uL (1.3-4.4); LYMPH % 13.6 % (27.0-41.0); MEAN CELL VOLUME 89.1 fl (81.0-99.0); MEAN CORPUSCULAR HGB CONC 32.6 g/dl (33.0-37.0); MEAN PLATELET VOLUME 10.9 fl (9.6-12.3); MONO # 0.3 10*3/uL (0.1-1.0); NEUT # 10.6 10*3/uL (2.3-7.9); NEUT % 83.7 % (47.0-73.0); PLATELET COUNT AUTOMATED 235 10*3/uL (130-400); RED BLOOD COUNT 4.03 10*6/uL (4.10-5.10); RED CELL DISTRI WIDTH 14.3 % (0-14.5); WHITE BLOOD COUNT 12.6 10*3/uL (4.8-10.8)
[2018-11-26 05:06] LABS: BUN 13 mg/dl (7-24); CHLORIDE 105 mmol/L (98-107); CREATININE 0.79 mg/dL (0.55-1.02); POTASSIUM 3.7 mmol/L (3.5-5.1); SODIUM 138 mmol/L (136-145)
[2018-11-26 08:00] VITALS: BP 112/64
--- NOTE | 2018-11-26 10:35 | NUR ---
IN TO SEE PT, SHORTLY THEREAFTER PT BECAME SOB WITH TIGHT AUDIBLE WHEEZWES AND A BARK LIKE COUGH, BIPAP PLACED ON, DR PARRA HERE AND DOES NOT WANT PT TRANSFERRED OUT OF ICCU, PT VERY ANXIOUS AND IV ATIVAN GIVEN
--- NOTE | 2018-11-26 11:43 | NUR ---
REMAINS ON BIPAP, AND MUCH CALMER SINCE IV ATIVAN, PT THINKS THE STRONG SMELL OF CIG SMOKE ON HER HUSBANDS CLOTHES IS WHAT SET HER ASTHMA OFF
[2018-11-26 12:00] VITALS: BP 125/62
--- NOTE | 2018-11-26 14:21 | NUR ---
REMAINS SLEEPING WITH BIPAP ON, ATIVAN EFFECTIVE
--- NOTE | 2018-11-26 14:30 | NUR ---
Hinging Machine Operator in to see patient. She is currently on bipap. Will follow up at a later time. Discharge plan undecided at this time.
[2018-11-26 16:00] VITALS: BP 113/59
--- NOTE | 2018-11-26 18:00 | NUR ---
UP IN RECLINER EATING DINNER
[2018-11-26 20:00] VITALS: BP 103/76
--- NOTE | 2018-11-26 21:30 | NUR ---
MEDICATED WITH ATIVAN PER PRN ORDER FOR C/O ANXIETY.
[2018-11-27] VITALS: BP 93/46
[2018-11-27 04:00] VITALS: BP 91/57
[2018-11-27 05:12] LABS: CHLORIDE 102 mmol/L (98-107); CREATININE 0.93 mg/dL (0.55-1.02); PHOSPHOROUS 3.6 mg/dL (2.5-4.9); POTASSIUM 4.3 mmol/L (3.5-5.1); SODIUM 138 mmol/L (136-145)
[2018-11-27 05:14] LABS: BUN 25 mg/dl (7-24)
[2018-11-27 06:02] LABS: BASO % 0.1 % (0.0-1.0); HEMATOCRIT 37.3 % (37.0-47.0); LYMPH # 1.7 10*3/uL (1.3-4.4); LYMPH % 12.9 % (27.0-41.0); MEAN CELL VOLUME 90.5 fl (81.0-99.0); MEAN CORPUSCULAR HGB 29.1 pg (27.0-31.0); MEAN CORPUSCULAR HGB CONC 32.2 g/dl (33.0-37.0); MEAN PLATELET VOLUME 11.4 fl (9.6-12.3); MONO # 0.5 10*3/uL (0.1-1.0); MONO % 3.6 % (3.0-9.0); NEUT # 10.9 10*3/uL (2.3-7.9); NEUT % 81.7 % (47.0-73.0); PLATELET COUNT AUTOMATED 262 10*3/uL (130-400); RED BLOOD COUNT 4.12 10*6/uL (4.10-5.10); RED CELL DISTRI WIDTH 14.6 % (0-14.5); WHITE BLOOD COUNT 13.4 10*3/uL (4.8-10.8)
--- NOTE | 2018-11-27 07:11 | NUR ---
24 HR chart check completed.
[2018-11-27 08:00] VITALS: BP 98/44
--- NOTE | 2018-11-27 10:30 | NUR ---
Clinician Oncology in to talk to patient. Patient states lives at home with her and children. There are 18-20 steps in the home. Physician: Damaris Arroyo Pharmacy: [facility] Home health services: none Patient's level of ADLs: INDEPENDENT Patient has working utilities: yes DME: none but would like a nebulizer if needed Follow-up physician's appointment after d/c: she prefers to make her own follow up appt after discharge Does patient want to access PORTAL?: no Discharge plan discussed with patient and her who is at the bedside. She lives at home with her and children. She is independent in her ADLs and ambulation. Discussed home health care services and she denies any home needs at this time. When medically stable she will be discharged to home. Her will transport on discharge. SOFIA OLIVAS
[2018-11-27 12:00] VITALS: BP 104/41
[2018-11-27 16:00] VITALS: BP 115/58
--- NOTE | 2018-11-27 19:30 | NUR ---
VISITING WITH FAMILY. NO DISTRESS NOTED. NO VOICED COMPLAINTS
[2018-11-27 20:00] VITALS: BP 111/66
--- NOTE | 2018-11-27 20:00 | NUR ---
AMBULATED TO SHOWER ROOM TO BATH
--- NOTE | 2018-11-27 20:05 | NUR ---
24 HR chart check completed.
--- NOTE | 2018-11-27 21:00 | NUR ---
RESTING IN BED WITH NO ACUTE DISTRESS NOTED. RESPIRATIONS EASY. LUNGS DIMINISHED, CLEAR. PULSE OX 93% RA. COUGH, OCCASIONALLY PRODUCTIVE PER PATIENT. CALL LIGHT WITHIN REACH. NO VOICED COMPLAINTS
--- NOTE | 2018-11-27 21:21 | NUR ---
REQUESTED AND RECEIVED ATIVAN PER PRN ORDER TO ASSIST WITH TOLERATING BI-PAP WHILE SLEEPING. WILL MONITOR
[2018-11-27] MEDS ORDERED: BUSPAR5 MG PO (21:29)
[2018-11-28] VITALS: BP 110/53
--- NOTE | 2018-11-28 00:15 | NUR ---
MEDS EFFECTIVE. SLEEPING. RESPIRATIONS EASY. PULSE OX 93% BI-PAP IN USE. CALL LIGHT WITHIN REACH
--- NOTE | 2018-11-28 02:30 | NUR ---
CONTINUES TO SLEEP WITH BI-PAP IN PLACE
--- NOTE | 2018-11-28 06:00 | NUR ---
SLEPT THROUGHOUT NIGHT WITH NO DISTRESS NOTED. RESPIRATIONS EASY. BI-PAP IN USE. CALL LIGHT WITHIN REACH. NO VOICED COMPLAINTS THIS SHIFT
--- NOTE | 2018-11-28 07:00 | NUR ---
BI-PAP REMOVED AT PATIENT REQUEST. DENIES SOB
[2018-11-28 08:00] VITALS: BP 121/44
--- NOTE | 2018-11-28 08:30 | NUR ---
Patient resting quietly with no c/o discomfort. Respirations easy and regular. Vital signs stable. No overt distress. JIMY RODRIGUEZ
--- NOTE | 2018-11-28 09:27 | NUR ---
Mammography Technician in to see patient. Discussed home needs. Patient states she thinks she is going to be discharged today. She would like a nebulizer for home, a work release, and any inhalers that she may need she would like to have filled in the hospital pharmacy. 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 When medically stable she will be discharged to home.
[2018-11-28 12:00] VITALS: BP 130/50
[2018-11-28] MEDS ORDERED: VITAMIN D32000 UNI1 PO (13:36)
[2018-11-28] MEDS ORDERED: PROAIR HFA8.5 GM INH (13:36)
[2018-11-28] MEDS ORDERED: VENTOLIN 02.5 MG/3 M NEB (13:36)
[2018-11-28] MEDS ORDERED: NEBULIZER (13:37)
[2018-11-28] MEDS ORDERED: PREDNISONE10 MG PO (13:37)
--- NOTE | 2018-11-28 14:45 | NUR ---
Discharge instructions reviewed with patient/family. Patient receptive and verbalizes understanding. Follow-up care arranged. Written instructions given to patient/family. JIMY RODRIGUEZ.
== END 2018-11-28 15:00 | disposition home or self-care (01) | DRG 871 ==
LOC: ED 20:48 → ICCU 22:37 → EDHOLD 22:37 → 5E 11-25 08:48 → ICCU 11-25 09:55 → 5E 11-27 16:19
PROVIDERS: Internal Medicine; Internal Medicine Critical Care Medicine; Physician Assistant; Student in an Organized Health Care Education/Training Program; ADMIT Internal Medicine
PROC: 5A09357 Assistance with Respiratory Ventilation, Less than 24 Consecutive Hours, Continuous Positive Airway Pressure (ICD-10-PCS; principal; 2018-11-25)
PROC: 5A09357 Assistance with Respiratory Ventilation, Less than 24 Consecutive Hours, Continuous Positive Airway Pressure (ICD-10-PCS; 2018-11-26)
PROC: 5A09357 Assistance with Respiratory Ventilation, Less than 24 Consecutive Hours, Continuous Positive Airway Pressure (ICD-10-PCS; 2018-11-27)
DX: A41.9 Sepsis, unspecified organism (principal); J96.01 Acute respiratory failure with hypoxia; J18.9 Pneumonia, unspecified organism; E44.0 Moderate protein-calorie malnutrition; E87.2 Acidosis; J45.51 Severe persistent asthma with (acute) exacerbation; Z68.42 Body mass index [BMI] 45.0-49.9, adult; R65.20 Severe sepsis without septic shock; K21.9 Gastro-esophageal reflux disease without esophagitis; F32.9 Major depressive disorder, single episode, unspecified; E87.6 Hypokalemia; R74.8 Abnormal levels of other serum enzymes; E28.2 Polycystic ovarian syndrome; G47.33 Obstructive sleep apnea (adult) (pediatric); J20.9 Acute bronchitis, unspecified; I10 Essential (primary) hypertension; E03.9 Hypothyroidism, unspecified; K52.9 Noninfective gastroenteritis and colitis, unspecified; E66.01 Morbid (severe) obesity due to excess calories; E83.41 Hypermagnesemia; E78.1 Pure hyperglyceridemia; E11.65 Type 2 diabetes mellitus with hyperglycemia; Z79.4 Long term (current) use of insulin; Z90.49 Acquired absence of other specified parts of digestive tract; Z98.891 History of uterine scar from previous surgery; Z82.49 Family history of ischemic heart disease and other diseases of the circulatory system; Z81.8 Family history of other mental and behavioral disorders; Z79.890 Hormone replacement therapy; Z79.899 Other long term (current) drug therapy

== ENCOUNTER 2018-12-12 17:01 | Inpatient (IN) | payer OTHER ==
[~2018-12-12] VITALS: Ht 162.6 cm; Wt 129.8 kg
[~2018-12-12 17:01] MED LIST changes: +BUSPAR5 MG PO; +GLIPIZIDE5 MG PO; +LISINOPRIL-HCT1 EACH PO; +NEBULIZER; +PREDNISONE10 MG PO; +PROAIR HFA8.5 GM INH; +QUETIAPINE FUMA50 M1 PO; +VENTOLIN 02.5 MG/3 M NEB; +VICTOZA 3-PAK6 MG/ML SC; +VITAMIN D32000 UNI1 PO
--- NOTE | 2018-12-12 17:30 | NUR ---
PATIENT RUSHED TO ROOM #2 FOR POSSIBLE INTUBATION PER VERBAL ORDER OF DR MAHMOOD. REPORT RECEIVED FROM MEGA CRANDALL AT THIS TIME. PATIENT APPEARS TO HAVE LABORED RESPIRATIONS AT THIS TIME HAS BEEN ON THE BIPAP MACHINE BUT ROOM AIR PULSE OX IS AT 95%. PATIENT STATES THAT YESTERDAY SHE HAD AN ASTHMA ATTACK AND STATES THAT SHE WAS AT WORK TODAY WELL AT HER PATIENTS HOUSE FOR AN HOUR THAT HAD ANIMALS. PATIENT HAD ANOTHER ASTHMA ATTACK AFTER LEAVING AND DRIVING HER CAR. PATIENT USED HER RESUE INHALER TWICE TODAY. HAS RECEIVED 3 DUONEBS HERE IN ER AND ALSO 125MG OF SOLUMEDROL IV. IV ACCESS WAS ACCIDENTLY DC'D AND NEW IV INSERTED BY NURSE KIMBERLI CONTRERAS. PATIENT PLACED ONTO BAIL BONDING AGENT. RESPIRATORY AT BEDSIDE. DR MAHMOOD AT BEDSIDE. PATIENT BEGAN TO BREATH BETTER AT THIS TIME. LABORED RESPIRATIONS HAVE DECREASED. LUNGS DIMISHED BL UPON AUSCULTATION.
[2018-12-12 17:43] LABS: HEMATOCRIT 44.3 % (37.0-47.0); HEMOGLOBIN 14.7 g/dl (12.0-16.0); MEAN CELL VOLUME 87.4 fl (81.0-99.0); MEAN CORPUSCULAR HGB CONC 33.2 g/dl (33.0-37.0); MEAN PLATELET VOLUME 10.5 fl (9.6-12.3); PLATELET COUNT AUTOMATED 265 10*3/uL (130-400); RED BLOOD COUNT 5.07 10*6/uL (4.10-5.10); RED CELL DISTRI WIDTH 13.9 % (0-14.5); WHITE BLOOD COUNT 15.9 10*3/uL (4.8-10.8)
[2018-12-12 17:47] VITALS: BP 128/84
[2018-12-12 17:59] LABS: ABG BASE EXCESS -0.4 mmol/L (-2.0-2.0); ABG HCO3 23.2 mmol/l (22-26); ABG O2 SATURATION 95.2 % (95-97); ARTERIAL BLOOD GAS PCO2 36.8 mmHg (35-45); ARTERIAL BLOOD GAS PH 7.416 (7.35-7.45); ARTERIAL BLOOD GAS PO2 73.5 mmHg (80-90)
[2018-12-12 17:59] LABS: ALBUMIN 3.8 gm/dl (3.1-4.5); ALKALINE PHOSPHATASE 141 U/L (45-117); BUN 17 mg/dl (7-24); CHLORIDE 102 mmol/L (98-107); CREATININE 0.91 mg/dL (0.55-1.02); POTASSIUM 3.5 mmol/L (3.5-5.1); SGOT/AST 47 IU/L (3-35); SGPT/ALT 116 U/L (12-78); SODIUM 135 mmol/L (136-145); TOTAL PROTEIN 8.1 gm/dL (6.4-8.2)
[2018-12-12 18:04] LABS: PLATELET SUFFICIENCY NORMAL (NORMAL); TOTAL CELLS COUNTED 100 #CELLS
[2018-12-12 18:05] LABS: POLYCHROMASIA SLIGHT
[2018-12-12 18:08] VITALS: BP 128/84
--- NOTE | 2018-12-12 18:20 | NUR ---
BEDSIDE REPORT GIVEN TO GLEN AGEE.
--- NOTE | 2018-12-12 18:22 | NUR ---
CRITICAL RESULT CALLED AT THIS TIME LACTIC ACID IS 4.1. DR MAHMOOD NOTIFIED.
[2018-12-12 18:30] VITALS: BP 135/65
--- NOTE | 2018-12-12 18:30 | NUR ---
A 38, admitted to ICCU, under the services of SARITA Medina DO with a diagnosis of ASTHMA EXACERBATION AND ACUTE RESPIRATORY FAILURE. Chief complaint is ASTHMA ATTACK. Patient arrived via stretcher from ER. Monitor applied. Initial assessment completed. Vital signs taken and recorded. SARITA MEDINA DO notified of admission to the unit. Orders received. See assessment for past medical history, medications and allergies. Patient and/or family oriented to unit. [facility] visitation policy reviewed. Clothing/patient valuable form completed. GLEN COLMEAN
--- NOTE | 2018-12-12 18:43 | NUR ---
PATIENT DENIES ANY WOUNDS AT THIS TIME A&OX4.
--- NOTE | 2018-12-12 19:55 | NUR ---
DR. UNDERWOOD NOTIFIED OF LACTIC ACID RESULT OF 4.8. NO NEW ORDERS GIVEN.
[2018-12-12 20:00] VITALS: BP 134/66
--- NOTE | 2018-12-12 20:20 | NUR ---
PATIENT GIVEN ATIVAN PER PT REQUEST FOR RESTLESSNESS, AND ANXIETY. WILL CONTINUE TO MONITOR AND REASSESS.
--- NOTE | 2018-12-12 20:30 | NUR ---
PATIENT TAKEN OFF THE FLOOR FOR CTA CHEST.
[2018-12-13] VITALS: BP 100/64
[2018-12-13 04:00] VITALS: BP 117/72
[2018-12-13 05:08] LABS: BUN 16 mg/dl (7-24); CHLORIDE 104 mmol/L (98-107); CREATININE 0.82 mg/dL (0.55-1.02); PHOSPHOROUS 4.1 mg/dL (2.5-4.9); POTASSIUM 4.4 mmol/L (3.5-5.1); SODIUM 136 mmol/L (136-145)
[2018-12-13 06:11] LABS: BASO % 0.3 % (0.0-1.0); EOS % 0.1 % (1.0-4.0); HEMATOCRIT 37.1 % (37.0-47.0); LYMPH # 1.6 10*3/uL (1.3-4.4); LYMPH % 11.8 % (27.0-41.0); MEAN CORPUSCULAR HGB 29.1 pg (27.0-31.0); MEAN CORPUSCULAR HGB CONC 32.3 g/dl (33.0-37.0); MEAN PLATELET VOLUME 10.9 fl (9.6-12.3); MONO # 0.2 10*3/uL (0.1-1.0); MONO % 1.2 % (3.0-9.0); NEUT # 11.8 10*3/uL (2.3-7.9); NEUT % 85.9 % (47.0-73.0); PLATELET COUNT AUTOMATED 205 10*3/uL (130-400); RED BLOOD COUNT 4.12 10*6/uL (4.10-5.10); RED CELL DISTRI WIDTH 14.3 % (0-14.5); WHITE BLOOD COUNT 13.8 10*3/uL (4.8-10.8)
[2018-12-13 08:00] VITALS: BP 107/63
--- NOTE | 2018-12-13 08:00 | NUR ---
PT AAOX3. RESP EASY AT REST. VITAL SIGNS REMAIN STABLE. PT CONTINUES TO HAVE A HARSH, TIGHT COUGH THAT IS NONPRODUCTIVE AT THIS TIME. PT DENIES COMPLAINTS AT THIS TIME. WILL CONTINUE TO MONITOR PT.
--- NOTE | 2018-12-13 09:00 | NUR ---
Director Education in to talk to patient. Patient states lives at home with her and children. There are 18-20 steps in the home. Physician: Damaris Arroyo Pharmacy: [facility] Home health services: none Patient's level of ADLs: INDEPENDENT Patient has working utilities: yes DME: nebulizer Follow-up physician's appointment after d/c: will be made by the hospitalist nurse director upon discharge Does patient want to access PORTAL?: no Discharge plan discussed with patient. She is sitting on the edge of her bed. She lives at home with her and children. She is independent in her ADLs and ambulation. Discussed home health care services and she denies any home needs at this time. When medically stable she will be discharged to home. Her will transport on discharge. SOFIA OLIVAS
[2018-12-13 12:00] VITALS: BP 92/40
--- NOTE | 2018-12-13 14:37 | NUR ---
patient instructed on the use of incentive spirometry
[2018-12-13 16:00] VITALS: BP 108/62
--- NOTE | 2018-12-13 16:00 | NUR ---
PT'S MOTHER IN TO VISIT WITH HER. BIPAP TAKEN OFF AT THIS TIME. PT 94% ON RA. WILL CONTINUE TO MONITOR PT.
--- NOTE | 2018-12-13 16:35 | NUR ---
DR PRATHER PREVIOUSLY NOTIFIED OF ALL CRITICAL LACTIC ACID LEVELS. NO NEW ORDERS RECEIVED AT THOSE TIMES.
--- NOTE | 2018-12-13 17:50 | NUR ---
PT RESTING. RESP EASY. NO ACUTE DISTRESS NOTED.
--- NOTE | 2018-12-13 19:40 | NUR ---
PATIENT HAVING ANXIETY, WEEPY. ATIVAN GIVEN, THEN PATIENT REQUESTED TO BE PUT ON BIPAP. WILL MONITOR AND REASSESS.
[2018-12-13 20:00] VITALS: BP 101/50
--- NOTE | 2018-12-13 21:40 | NUR ---
PATIENT RESTING, EASILY AWAKES. PATIENT LESS ANXIOUS, BREATHING EASIER. ATIVAN EFFECTIVE.
--- NOTE | 2018-12-13 21:44 | NUR ---
PATIENT REQUESTED A BUSPAR TO HELP HER SLEEP. SHE STATED SHE TAKES IT WITH THE SEROQUEL. WAS GIVEN. WILL MONITOR AND REASSESS.
[2018-12-14] VITALS: BP 98/58
--- NOTE | 2018-12-14 00:44 | NUR ---
24 HR chart check completed.
--- NOTE | 2018-12-14 03:30 | NUR ---
PATIENT RESTING IN BED WITH EYES CLOSED, APPEARS TO BE SLEEPING. NO SIGNS OR SYMPTOMS OF DISTRESS SEEN, RESPIRATIONS ARE UNLABORED. PATIENT REMAINS ON THE BIPAP AT THIS TIME, TOLERATING WELL. CALL LIGHT WITHIN REACH. PATIENT APPEARS TO BE RESTING WELL, EARLIER MEDICATION SEEMS TO HAVE BEEN EFFECTIVE
[2018-12-14 04:03] VITALS: BP 118/60
[2018-12-14 04:48] LABS: BASO % 0.2 % (0.0-1.0); EOS % 0.1 % (1.0-4.0); HEMATOCRIT 35.1 % (37.0-47.0); HEMOGLOBIN 11.2 g/dl (12.0-16.0); LYMPH # 1.4 10*3/uL (1.3-4.4); LYMPH % 13.1 % (27.0-41.0); MEAN CELL VOLUME 90.9 fl (81.0-99.0); MEAN CORPUSCULAR HGB CONC 31.9 g/dl (33.0-37.0); MEAN PLATELET VOLUME 10.8 fl (9.6-12.3); MONO # 0.3 10*3/uL (0.1-1.0); MONO % 2.8 % (3.0-9.0); NEUT # 9.1 10*3/uL (2.3-7.9); NEUT % 82.9 % (47.0-73.0); PLATELET COUNT AUTOMATED 181 10*3/uL (130-400); RED BLOOD COUNT 3.86 10*6/uL (4.10-5.10); RED CELL DISTRI WIDTH 14.6 % (0-14.5)
[2018-12-14 05:17] LABS: ALKALINE PHOSPHATASE 85 U/L (45-117); BUN 20 mg/dl (7-24); CHLORIDE 107 mmol/L (98-107); CREATININE 0.71 mg/dL (0.55-1.02); PHOSPHOROUS 3.9 mg/dL (2.5-4.9); POTASSIUM 4.4 mmol/L (3.5-5.1); SGOT/AST 40 IU/L (3-35); SGPT/ALT 100 U/L (12-78); SODIUM 136 mmol/L (136-145); TOTAL PROTEIN 6.1 gm/dL (6.4-8.2)
[2018-12-14 08:00] VITALS: BP 122/64
[2018-12-14 12:00] VITALS: BP 116/57
[2018-12-14 16:00] VITALS: BP 129/79
--- NOTE | 2018-12-14 19:35 | NUR ---
PATIENT AWAKE, SITTING ON THE EDGE OF THE BED, VISITING WITH AND GETTING CLEANED UP AT THIS TIME. FINISHING UP WITH BREATHING TREATMENT. LUNGS DIMINISHED WITH SLIGHT WHEEZE IN THE BASES. DRY, HACKING COUGH. RESPIRATIONS ARE UNLABORED AND PATIENT IS DENYING SHORTNESS OF BREATH. DENIES OTHER NEEDS AT THIS TIME, RN WILL MONITOR.
[2018-12-14 20:00] VITALS: BP 128/75
--- NOTE | 2018-12-14 21:51 | NUR ---
PATIENT GIVEN PRN BUSPAR PER DRS ORDERS FOR COMPLAINTS OF ANXIETY AND RESTLESSNESS. WILL MONITOR FOR RELIEF OF SYMPTOMS.
--- NOTE | 2018-12-14 22:10 | NUR ---
RN CALLED INTO THE ROOM, PATIENT SITTING AT THE EDGE OF THE BED, FACE IS REDDENED AND PATIENT IS UNABLE TO TALK, POINTING TO CHEST MOUTHS THAT SHE CANNOT BREATHE, RESPIRATORY CALLED FOR BREATHING TREATMENT. RN WITH PATIENT.
--- NOTE | 2018-12-14 22:20 | NUR ---
RESPIRATORY IN WITH PATIENT
--- NOTE | 2018-12-14 22:54 | NUR ---
PATIENT CALLED RN INTO ROOM AGAIN, STATES SHE FEELS NERVOUS AND LIKE "SOMETHING IS WRONG", PATIENT IS TEARY EYED SHE TALKS WITH THIS RN. PATIENT REQUESTING ATIVEN, SO ATIVAN 1MG IV GIVEN PER DRS ORDERS. RN WILL CONTINUE TO MONITOR FOR RELIEF OF THESE SYMPTOMS
[2018-12-15] VITALS: BP 117/66
--- NOTE | 2018-12-15 00:45 | NUR ---
RESPIRATORY IN TO PLACE PATIENT ON BIPAP PER PATIENTS.
[2018-12-15 04:00] VITALS: BP 100/50
[2018-12-15 06:36] LABS: BASO % 0.2 % (0.0-1.0); HEMATOCRIT 34.8 % (37.0-47.0); HEMOGLOBIN 11.2 g/dl (12.0-16.0); LYMPH # 1.5 10*3/uL (1.3-4.4); LYMPH % 16.2 % (27.0-41.0); MEAN CELL VOLUME 90.2 fl (81.0-99.0); MEAN CORPUSCULAR HGB CONC 32.2 g/dl (33.0-37.0); MEAN PLATELET VOLUME 10.9 fl (9.6-12.3); MONO # 0.4 10*3/uL (0.1-1.0); MONO % 3.8 % (3.0-9.0); NEUT # 7.3 10*3/uL (2.3-7.9); NEUT % 77.5 % (47.0-73.0); PLATELET COUNT AUTOMATED 180 10*3/uL (130-400); RED BLOOD COUNT 3.86 10*6/uL (4.10-5.10); RED CELL DISTRI WIDTH 14.6 % (0-14.5); WHITE BLOOD COUNT 9.5 10*3/uL (4.8-10.8)
[2018-12-15 06:46] LABS: BUN 19 mg/dl (7-24); CHLORIDE 103 mmol/L (98-107); CREATININE 0.81 mg/dL (0.55-1.02); PHOSPHOROUS 4.3 mg/dL (2.5-4.9); POTASSIUM 4.2 mmol/L (3.5-5.1); SODIUM 136 mmol/L (136-145)
--- NOTE | 2018-12-15 07:55 | NUR ---
Upon chart review, this patient may be appropriate for an IV to PO interchange on her Azithromycin. Her WBC have steadily improved and are WNL; she has been afebrile for 24 hrs; and she is tolerating a PO diet and other PO scheduled medications. If deemed clinically appropriate, consider switching to Azithromycin 250-500 mg PO daily. Thank you.
[2018-12-15 08:00] VITALS: BP 108/56
--- NOTE | 2018-12-15 08:23 | NUR ---
Sidelying to right ,B-Pap on. awakens easily . No audible wheezing noted , Lungs diminished.
--- NOTE | 2018-12-15 11:01 | NUR ---
Dr. Lan in to aulate. Breakfast ordered. Bi-pap off.
[2018-12-15 12:00] VITALS: BP 113/66
--- NOTE | 2018-12-15 14:33 | NUR ---
Family in to visit.
[2018-12-15 16:00] VITALS: BP 120/72
--- NOTE | 2018-12-15 16:13 | NUR ---
Awake and alert , family in to visit. Utilizing flutter valve.
[2018-12-15 20:00] VITALS: BP 132/91
--- NOTE | 2018-12-15 20:10 | NUR ---
RN CALLED INTO PATIENTS ROOM, PATIENT FACE IS FLUSHED AND MOUTHS THE WORDS I CANT BREATHE. RN PAGED RESPIRATORY FOR STAT PRN TREATMENT. WHILE WAITING FOR RESPIRATORY, RN AUSCULTATED PATIENTS LUNGS, NO ADVENTIOUS BREATHE SOUNDS WERE HEARD. LUNGS ONLY DIMINISHED. PATIENT CONTINUES TO AUDIBLY WHEEZE AND IS MOSTLY UPPER AIRWAY NOISE. PULSE OXIMETRY REMAINS WITHIN NORMAL LIMTS, 97%-98%, HEARTRATE REMAINED 100-110. RN REMAINS AT BEDSIDE
--- NOTE | 2018-12-15 20:18 | NUR ---
RESPIRTORY IN WITH PATIENT, PATIENT ASKING FOR RACEMIC EPI TREATMENT
--- NOTE | 2018-12-15 22:40 | NUR ---
AFTER SEVERAL ATTEMPTS AT OBTAINING IV ACCESS, A SUCCESSFUL IV SITE WAS STARTED IN THE LEFT UPPER ARM. RN EDUCATED PATIENT TO BE CAREFUL WHEN MOVING IN BED, AND SECURELY TAPED SITE DOWN.
--- NOTE | 2018-12-15 23:09 | NUR ---
IV ATIVAN GIVEN PER DRS ORDERS FOR COMPLAINTS OF ANXIETY PRIOR TO BEING PLACED ON THE BIPAP
[2018-12-16] VITALS: BP 121/53
[2018-12-16 04:00] VITALS: BP 130/69
[2018-12-16 06:04] LABS: BASO % 0.1 % (0.0-1.0); EOS % 0.1 % (1.0-4.0); HEMATOCRIT 35.8 % (37.0-47.0); HEMOGLOBIN 11.8 g/dl (12.0-16.0); LYMPH # 1.6 10*3/uL (1.3-4.4); LYMPH % 19.5 % (27.0-41.0); MEAN CELL VOLUME 89.1 fl (81.0-99.0); MEAN CORPUSCULAR HGB 29.4 pg (27.0-31.0); MEAN PLATELET VOLUME 10.8 fl (9.6-12.3); MONO # 0.4 10*3/uL (0.1-1.0); MONO % 4.6 % (3.0-9.0); NEUT # 6.1 10*3/uL (2.3-7.9); NEUT % 72.9 % (47.0-73.0); PLATELET COUNT AUTOMATED 180 10*3/uL (130-400); RED BLOOD COUNT 4.02 10*6/uL (4.10-5.10); RED CELL DISTRI WIDTH 14.4 % (0-14.5); WHITE BLOOD COUNT 8.3 10*3/uL (4.8-10.8)
[2018-12-16 06:10] LABS: BUN 26 mg/dl (7-24); CHLORIDE 98 mmol/L (98-107); POTASSIUM 4.3 mmol/L (3.5-5.1); SODIUM 135 mmol/L (136-145)
--- NOTE | 2018-12-16 07:35 | NUR ---
Sidelying w/ eyes closed. Awakens easily. Breakfast ordered. Dr. Cary in to roxytanja.
[2018-12-16 08:00] VITALS: BP 92/52
--- NOTE | 2018-12-16 11:26 | NUR ---
Dr. Lan in , order recieved for tsfr to tele. Report called to Sari AGEE. Pt. transferred via w/c with belongings.
[2018-12-16 12:00] VITALS: BP 160/90
[2018-12-16 16:00] VITALS: BP 141/73
--- NOTE | 2018-12-16 19:05 | NUR ---
BEDSIDE REPORT OBTAINED FROM PIYUSH-ANUEL. PATIENT IS SITTING UP IN BED, BREATHING TREATMENT AT THIS TIME. PATIENT VOICED NO COMPLAINTS, NO DISTRESS NOTED. RESP ARE ERND ON ROOM AIR. BED IS LOCKED IN LOWEST POSITION. CALL LIGHT WITHIN REACH.
[2018-12-16 20:00] VITALS: BP 156/90
--- NOTE | 2018-12-16 21:21 | NUR ---
PATIENT MEDICATED WITH BUSPAR FOR C/O ANXIETY. WILL MONITOR
--- NOTE | 2018-12-16 22:21 | NUR ---
BUSPAR ONLY SLIGHTLY EFFECTIVE PER PATIENT, STATES SHE WILL NEED ATIVAN LATER WHEN BIPAP IS IN USE.
--- NOTE | 2018-12-16 23:02 | NUR ---
PATIENT REQUESTING ATIVAN FOR AGGITATION D/T BIPAP USE. PATIENT MEDICATED. WILL MONITOR
[2018-12-17] VITALS: BP 116/57
--- NOTE | 2018-12-17 00:02 | NUR ---
ATIVAN APPEARS EFFECTIVE. PATIENT RESTING IN BED, EYES CLOSED. NO DISTRESS NOTED. CALLIGHT WITHIN REACH.
--- NOTE | 2018-12-17 01:53 | NUR ---
24 HR chart check completed.
[2018-12-17 06:33] LABS: BASO % 0.2 % (0.0-1.0); EOS % 0.1 % (1.0-4.0); HEMATOCRIT 37.9 % (37.0-47.0); HEMOGLOBIN 12.3 g/dl (12.0-16.0); LYMPH # 2.3 10*3/uL (1.3-4.4); MEAN CORPUSCULAR HGB 28.9 pg (27.0-31.0); MEAN CORPUSCULAR HGB CONC 32.5 g/dl (33.0-37.0); MEAN PLATELET VOLUME 10.7 fl (9.6-12.3); MONO # 0.7 10*3/uL (0.1-1.0); MONO % 6.8 % (3.0-9.0); NEUT # 6.7 10*3/uL (2.3-7.9); NEUT % 67.7 % (47.0-73.0); NUCLEATED RED BLOOD CELL 0.2 % (0.0-0.0); PLATELET COUNT AUTOMATED 225 10*3/uL (130-400); RED BLOOD COUNT 4.26 10*6/uL (4.10-5.10); RED CELL DISTRI WIDTH 14.5 % (0-14.5); WHITE BLOOD COUNT 9.9 10*3/uL (4.8-10.8)
[2018-12-17 07:03] LABS: ALBUMIN 3.1 gm/dl (3.1-4.5); ALKALINE PHOSPHATASE 84 U/L (45-117); BUN 25 mg/dl (7-24); CHLORIDE 98 mmol/L (98-107); CREATININE 0.82 mg/dL (0.55-1.02); POTASSIUM 3.9 mmol/L (3.5-5.1); SGOT/AST 14 IU/L (3-35); SGPT/ALT 74 U/L (12-78); SODIUM 134 mmol/L (136-145); TOTAL PROTEIN 6.6 gm/dL (6.4-8.2)
[2018-12-17 08:00] VITALS: BP 106/60
--- NOTE | 2018-12-17 08:03 | NUR ---
INITIAL ASSESSMENT COMPLETE. RESPS EASY ON BIPAP.SPO2 100%. VOICES NO NEEDS. RESTING WITH EYES CLOSED,AROUSES EASILY.CALL LIGHT IN REACH.
--- NOTE | 2018-12-17 09:00 | NUR ---
Wardrobe Supervisor in to see patient. No new needs or request at this time. She denies any home needs. When medically stable she will be discharged to home.
[2018-12-17 12:00] VITALS: BP 152/96
--- NOTE | 2018-12-17 12:35 | NUR ---
Patient resting quietly with no c/o discomfort. Respirations easy and regular. On RA.Vital signs stable. No overt distress. CLARISSA SIMPSON
--- NOTE | 2018-12-17 13:11 | NUR ---
PT RETURNED FROM SHOWERING WITH SHORTNESS OF BREATH AND TACHYCARDIA NOTED. ENCOURAGED PT TO SIT DOWN AND EDUCATION PROVIDED REGARDING ENERGY CONSERVATION AND DEEP BREATHING TECHNIQUES. PT DECLINED O2 AT THIS TIME. PT SEATED IN BED AND LESS SOB NOTED FOLLOWING PURSE LIP BREATHING.MONITOR REAPPLIED HR 88.NO DISTRESS NOTED.SPO2 96% ON RA.CALL LIGHT IN REACH.WILL CONTINUE TO MONITOR.
[2018-12-17 16:00] VITALS: BP 141/84
[2018-12-17 20:00] VITALS: BP 148/82
--- NOTE | 2018-12-17 20:58 | NUR ---
PATIENT REQUESTED BUSPAR FOR C/O ANXIETY. WILL MONITOR
--- NOTE | 2018-12-17 21:00 | NUR ---
Hep Lock discontinued,JOSHUA. Site symptomatic, PAINFUL/AMIRA. Pressure applied. Sterile dressing applied. GISELLE HERNANDEZ
--- NOTE | 2018-12-17 22:18 | NUR ---
IV started right UPPER arm with #22 protective cath after 4 attempts. Site prepped with Chloroprep. Sterile dressing applied. Patient tolerated procedure well. GISELLE HERNANDEZ
--- NOTE | 2018-12-17 22:59 | NUR ---
PATIENT REQUESTED ATIVAN FOR C/O AGGITATION/ANXIETY TOWARD BIPAP MACHINE. WILL MONITOR
--- NOTE | 2018-12-17 23:59 | NUR ---
ATIVAN EFFECTIVE FOR ANXIETY
[2018-12-18] VITALS: BP 123/80
--- NOTE | 2018-12-18 00:35 | NUR ---
INFORMED THAT PATIENT'S OCCLUDED AND WAS PAINFUL. SITE DISCONTINUED AND PATIENT REQUESTING NOT TO BE "STICKED" AGAIN TONIGHT SINCE NO IV MEDS ARE DUE UNTIL AM. STATED IT WAS OK NOT TO HAVE ACCESS AT THIS TIME.
[2018-12-18 05:56] LABS: BASO % 0.2 % (0.0-1.0); EOS % 0.2 % (1.0-4.0); HEMATOCRIT 39.1 % (37.0-47.0); HEMOGLOBIN 13.1 g/dl (12.0-16.0); LYMPH # 2.5 10*3/uL (1.3-4.4); LYMPH % 21.8 % (27.0-41.0); MEAN CELL VOLUME 87.3 fl (81.0-99.0); MEAN CORPUSCULAR HGB 29.2 pg (27.0-31.0); MEAN CORPUSCULAR HGB CONC 33.5 g/dl (33.0-37.0); MEAN PLATELET VOLUME 10.4 fl (9.6-12.3); MONO # 0.7 10*3/uL (0.1-1.0); MONO % 5.9 % (3.0-9.0); NEUT # 8.2 10*3/uL (2.3-7.9); NEUT % 70.3 % (47.0-73.0); PLATELET COUNT AUTOMATED 238 10*3/uL (130-400); RED BLOOD COUNT 4.48 10*6/uL (4.10-5.10); RED CELL DISTRI WIDTH 14.7 % (0-14.5); WHITE BLOOD COUNT 11.6 10*3/uL (4.8-10.8)
[2018-12-18 06:03] LABS: CREATININE 0.98 mg/dL (0.55-1.02)
--- NOTE | 2018-12-18 08:15 | NUR ---
PT IS ASLEEP AT THIS TIME. NO S/S OF DISTRESS NOTED, RESPS EASY AND NONLABORED. BED IS LOW, CALL LIGHT WITHIN REACH. WILL CONTINUE TO MONITOR.
--- NOTE | 2018-12-18 08:29 | NUR ---
DR. REED MADE AWARE THAT PATIENT HAS NO IV ACCESS.
[2018-12-18 12:00] VITALS: BP 117/85
[2018-12-18 16:00] VITALS: BP 110/61
--- NOTE | 2018-12-18 19:15 | NUR ---
BEDSIDE REPORT OBTAINED FROM ANGEL. PATIENT VOICED NO COMPLAINTS, RESTING IN BED. NO DISTRESS NOTED, RESP ARE ERND ON ROOM AIR. BED IS LOCKED IN LOWEST POSITION. CALL LIGHT WITHI NREACH.
[2018-12-18 20:00] VITALS: BP 127/85
--- NOTE | 2018-12-18 21:09 | NUR ---
PATIENT MEDICATED WITH BUSPAR FOR C/O ANXIETY. WILL MONITOR
--- NOTE | 2018-12-18 22:09 | NUR ---
BUSPAR EFFECTIVE FOR ANXIETY.
[2018-12-19] VITALS: BP 97/53
[2018-12-19 08:00] VITALS: BP 119/76
[2018-12-19 12:00] VITALS: BP 122/76
[2018-12-19] MEDS ORDERED: DOXYCYCLINE100 M3 PO (12:34)
[2018-12-19] MEDS ORDERED: PREDNISONE10 MG PO (12:34)
[2018-12-19] MEDS ORDERED: ADV 100/50 INH (12:34)
--- NOTE | 2018-12-19 15:58 | NUR ---
PT DISCHARGED HOME AT THIS TIME. HEPLOCK DISCONTINUED. PRESCRIPTIONS AND FOLLOW UP CARE DISCUSSED.
== END 2018-12-19 15:58 | disposition home or self-care (01) | DRG 871 ==
LOC: ED 17:01 → EDHOLD 17:40 → 5E 17:40 → ICCU 17:40 → 5E 12-16 11:36
PROVIDERS: Family Medicine; Internal Medicine; Nurse Practitioner Family; ADMIT Internal Medicine
PROC: 5A09357 Assistance with Respiratory Ventilation, Less than 24 Consecutive Hours, Continuous Positive Airway Pressure (ICD-10-PCS; principal; 2018-12-13)
PROC: 5A09357 Assistance with Respiratory Ventilation, Less than 24 Consecutive Hours, Continuous Positive Airway Pressure (ICD-10-PCS; 2018-12-14)
PROC: 5A09457 Assistance with Respiratory Ventilation, 24-96 Consecutive Hours, Continuous Positive Airway Pressure (ICD-10-PCS; 2018-12-15)
PROC: 5A09357 Assistance with Respiratory Ventilation, Less than 24 Consecutive Hours, Continuous Positive Airway Pressure (ICD-10-PCS; 2018-12-17)
PROC: 5A09357 Assistance with Respiratory Ventilation, Less than 24 Consecutive Hours, Continuous Positive Airway Pressure (ICD-10-PCS; 2018-12-18)
DX: A41.9 Sepsis, unspecified organism (principal); J18.9 Pneumonia, unspecified organism; J96.01 Acute respiratory failure with hypoxia; J45.901 Unspecified asthma with (acute) exacerbation; E87.2 Acidosis; E87.1 Hypo-osmolality and hyponatremia; E44.0 Moderate protein-calorie malnutrition; J42 Unspecified chronic bronchitis; R74.0 Nonspecific elevation of levels of transaminase and lactic acid dehydrogenase [LDH]; F32.9 Major depressive disorder, single episode, unspecified; K21.9 Gastro-esophageal reflux disease without esophagitis; I10 Essential (primary) hypertension; E03.9 Hypothyroidism, unspecified; E66.01 Morbid (severe) obesity due to excess calories; R65.20 Severe sepsis without septic shock; E11.65 Type 2 diabetes mellitus with hyperglycemia; E55.9 Vitamin D deficiency, unspecified; E78.1 Pure hyperglyceridemia; Z68.43 Body mass index [BMI] 50.0-59.9, adult; Z79.899 Other long term (current) drug therapy; Z90.89 Acquired absence of other organs; Z90.49 Acquired absence of other specified parts of digestive tract; Z98.891 History of uterine scar from previous surgery; Z90.710 Acquired absence of both cervix and uterus; Z82.49 Family history of ischemic heart disease and other diseases of the circulatory system; Z81.8 Family history of other mental and behavioral disorders

== ENCOUNTER 2019-03-05 12:16 | Inpatient (IN) | payer OTHER ==
[~2019-03-05] VITALS: Ht 162.5 cm; Wt 128.8 kg
[~2019-03-05 12:16] MED LIST changes: +ADV 100/50 INH; +DOXYCYCLINE100 M3 PO
--- NOTE | 2019-03-05 13:01 | NUR ---
PT STATES THAT SHE IS FEELING BETTER. SHE IS MUCH BETTER TO UNDERSTAND THAN WHEN SHE ARRIVED IN THE ED.
[2019-03-05 13:06] VITALS: BP 151/78
[2019-03-05 15:17] LABS: ALBUMIN 3.3 gm/dl (3.1-4.5); ALKALINE PHOSPHATASE 132 U/L (45-117); BUN 12 mg/dl (7-24); CHLORIDE 104 mmol/L (98-107); CREATININE 0.94 mg/dL (0.55-1.02); POTASSIUM 3.4 mmol/L (3.5-5.1); SGOT/AST 45 IU/L (3-35); SGPT/ALT 77 U/L (12-78); SODIUM 138 mmol/L (136-145); TOTAL PROTEIN 7.4 gm/dL (6.4-8.2)
--- NOTE | 2019-03-05 15:20 | NUR ---
PT HAD AN ASTHMA ATTACK AFTER PERFUME WAS PRESENT. PT PUT ON A NRB 15L.
[2019-03-05 15:27] LABS: BASO # 0.1 10*3/uL (0.0-0.1); BASO % 0.4 % (0.0-1.0); EOS # 0.1 10*3/uL (0.0-0.4); EOS % 0.8 % (1.0-4.0); HEMATOCRIT 41.6 % (37.0-47.0); HEMOGLOBIN 13.9 g/dl (12.0-16.0); MEAN CELL VOLUME 88.9 fl (81.0-99.0); MEAN CORPUSCULAR HGB 29.7 pg (27.0-31.0); MEAN CORPUSCULAR HGB CONC 33.4 g/dl (33.0-37.0); MEAN PLATELET VOLUME 10.9 fl (9.6-12.3); MONO # 0.4 10*3/uL (0.1-1.0); MONO % 2.9 % (3.0-9.0); NEUT % 79.3 % (47.0-73.0); PLATELET COUNT AUTOMATED 248 10*3/uL (130-400); RED BLOOD COUNT 4.68 10*6/uL (4.10-5.10); RED CELL DISTRI WIDTH 13.1 % (0-14.5); WHITE BLOOD COUNT 12.6 10*3/uL (4.8-10.8)
[2019-03-05] MEDS ORDERED: VITAMIN D350000 UNIT PO (15:39)
[2019-03-05] MEDS ORDERED: BUSPAR5 MG PO (15:40)
[2019-03-05] MEDS ORDERED: GLIPIZIDE10 M2 PO (15:40)
[2019-03-05] MEDS ORDERED: Synthroid,Levo50 MCG PO (15:41)
--- NOTE | 2019-03-05 16:40 | NUR ---
PT STATES THAT SHE IS FEELING BETTER AFTER BREATHING TREATMENT. GETTING READY TO TRANSFER PT TO 521.
--- NOTE | 2019-03-05 16:53 | NUR ---
DR UNDERWOOD NOTIFIED OF PT'S CRITICAL LACTIC ACID LEVEL OF 7.7
[2019-03-05 16:55] VITALS: BP 124/70
--- NOTE | 2019-03-05 16:55 | NUR ---
A 38, admitted to , under the services of MARINA Brian DO with a diagnosis of ASTHMA. Chief complaint is ASTHMA. Patient arrived via bed from ER. Monitor applied. Initial assessment completed. Vital signs taken and recorded. MARINA BRIAN DO notified of admission to the unit. Orders received. See assessment for past medical history, medications and allergies. Patient and/or family oriented to unit. [facility] visitation policy reviewed. Clothing/patient valuable form completed. SHADI HERNÁNDEZ
--- NOTE | 2019-03-05 18:11 | NUR ---
ATTEMPTED TO CALL DR. BARRERA FOR CONSULT. WILL TRY AGAIN LATER
--- NOTE | 2019-03-05 19:25 | NUR ---
DR. JUSTIN NOTIFIED OF CRITICAL LACTIC ACID
[2019-03-05 20:00] VITALS: BP 107/61
--- NOTE | 2019-03-05 20:12 | NUR ---
DR. BARRERA RETURNED CALL, ORDERS RECEIVED.
--- NOTE | 2019-03-05 20:22 | NUR ---
RESPIRATORY NOTIFIED OF ORDER FOR DUONEB QID AND DUONEB Q4 WHILE AWAKE PER ORDER BY DR. BARRERA.
--- NOTE | 2019-03-05 21:12 | NUR ---
PT HAVING DIFFICULTY BREATHING. RESPIRATORY NOTIFIED FOR STAT NEED OF DUONEB. PT RESPIRATIONS LABORED, 30/MIN. AUDIBLE WHEEZE NOTED ON INSPIRATION AND EXPIRATION. VERY LITTLE AIR MOVEMENT. DR. MOORE NOTIFIED, ORDERED TO GIVE DUONEBS ORDERED.
--- NOTE | 2019-03-05 22:08 | NUR ---
DR. MOORE MADE AWARE OF PT STATUS AT THIS TIME. PT BREATHING MUCH BETTER, NO AUDIBLE WHEEZE, LUNGS DIMINISHED T/O. NO NEW ORDERS AT THIS TIME.
--- NOTE | 2019-03-05 22:11 | NUR ---
DR. MOORE NOTIFIED OF CRITICAL LACTIC ACID OF 8.1. STATED HE WILL PUT IN ORDERS.
[2019-03-05] MEDS ORDERED: OMEPRAZOLE MAGN20 MG PO (22:25)
[2019-03-06] VITALS: BP 137/69
--- NOTE | 2019-03-06 01:01 | NUR ---
CALLED DR. MOORE WITH CRITICAL HIGH LACTIC ACID OF 5.5. NO NEW ORDERS.
--- NOTE | 2019-03-06 01:16 | NUR ---
24 HR chart check completed.
[2019-03-06 06:37] LABS: ALBUMIN 3.1 gm/dl (3.1-4.5); BUN 12 mg/dl (7-24); CHLORIDE 109 mmol/L (98-107); SGOT/AST 87 IU/L (3-35); SGPT/ALT 111 U/L (12-78); SODIUM 138 mmol/L (136-145); TOTAL PROTEIN 6.9 gm/dL (6.4-8.2)
[2019-03-06 06:38] LABS: BASO % 0.2 % (0.0-1.0); EOS # 0.2 10*3/uL (0.0-0.4); HEMATOCRIT 39.5 % (37.0-47.0); HEMOGLOBIN 12.7 g/dl (12.0-16.0); LYMPH # 1.4 10*3/uL (1.3-4.4); LYMPH % 15.7 % (27.0-41.0); MEAN CORPUSCULAR HGB 28.9 pg (27.0-31.0); MEAN CORPUSCULAR HGB CONC 32.2 g/dl (33.0-37.0); MEAN PLATELET VOLUME 10.7 fl (9.6-12.3); MONO # 0.3 10*3/uL (0.1-1.0); MONO % 3.4 % (3.0-9.0); NEUT # 7.1 10*3/uL (2.3-7.9); NEUT % 78.4 % (47.0-73.0); PLATELET COUNT AUTOMATED 223 10*3/uL (130-400); RED BLOOD COUNT 4.39 10*6/uL (4.10-5.10); RED CELL DISTRI WIDTH 13.2 % (0-14.5)
[2019-03-06 06:39] LABS: ALKALINE PHOSPHATASE 114 U/L (45-117); CREATININE 0.65 mg/dL (0.55-1.02)
[2019-03-06 06:41] LABS: POTASSIUM 4.4 mmol/L (3.5-5.1)
[2019-03-06 08:00] VITALS: BP 107/52
--- NOTE | 2019-03-06 10:00 | NUR ---
Still Operator Helper in to talk to patient. Patient states lives at home with her and children. There are 18-20 steps in the home. Physician: Damaris Arroyo Pharmacy: [facility] Home health services: none Patient's level of ADLs: INDEPENDENT Patient has working utilities: yes DME: nebulizer Follow-up physician's appointment after d/c: will be made by the hospitalist nurse director upon discharge Does patient want to access PORTAL?: no Discharge plan discussed with patient. She is sitting up in her bed without distress noted. She lives at home with her and children. She is independent in her ADLs and ambulation. She would like to see about getting an Aerogen pro-x nebulizer. She states "it seems to work better as it make the particles of the breathing treatments smaller and able to get further down in her lungs." Hospitalist nurse director notified. Discussed home health care services and she denies any home needs at this time. When medically stable she will be discharged to home. Her will transport on discharge. SOFIA OLIVAS
[2019-03-06 12:00] VITALS: BP 138/84
[2019-03-06 16:00] VITALS: BP 125/67
[2019-03-06 20:00] VITALS: BP 142/60
--- NOTE | 2019-03-06 20:28 | NUR ---
SPUTUM OBTAINED AND SENT TO LAB FOR TESTING.
[2019-03-07] VITALS: BP 115/62
--- NOTE | 2019-03-07 04:02 | NUR ---
24 HR chart check completed.
--- NOTE | 2019-03-07 06:20 | NUR ---
CALLED DR. MOORE WITH CRITICAL RESULTS OF LACTIC ACID 2.5 NO NEW ORDERS.
[2019-03-07 08:00] VITALS: BP 128/68
[2019-03-07 08:05] LABS: HEPATITIS B SURFACE AG Negative (Negative); HEPATITIS C VIRUS ANTIBODY 0.1 s/co (0.0-0.9)
--- NOTE | 2019-03-07 10:00 | NUR ---
Open Soaper Tender in to see patient. No new needs or request at this time. She denies any home needs. She would like to be see about getting an Aerogen pro-x nebulizer for home. When medically stable she will be discharged to home.
[2019-03-07 12:00] VITALS: BP 148/84
--- NOTE | 2019-03-07 15:46 | NUR ---
PATIENT WAS UP TO BATHROOM. WHEN RETURNING TO BED. SHE BECAME SHORT OF BREATH. RESPIRATORY AT BEDSIDE. SHORTNESS OF BREATH ESCALATED. PATIENT FELT THROAT WAS CLOSING OFF. RACEPINEPHRINE GIVEN PER PRN ORDER.
[2019-03-07 16:00] VITALS: BP 141/70
--- NOTE | 2019-03-07 16:30 | NUR ---
CALLED REGARDING BREATHING EPISODE. WANTED RN TO CALL .
--- NOTE | 2019-03-07 16:44 | NUR ---
DURING ROUNDS PATIENT WAS FOUND SLIGHTLY WHEEZING, AFTER AUSCULTATION THE WHEEZE WAS MORE PRESENT IN THE VOCAL CORD AREA MORE SO THAN THE LUNGS. PATIENT WAS GIVEN A RACEMIC EPI TREATMENT. AFTER THE FIRST TREATMENT WAS GIVING HER BRONCHODIALTOR TO TAKE CARE OF ANY RESIDUAL WHEEZE FROM THE REACTION OF THE AIRWAY.
--- NOTE | 2019-03-07 16:45 | NUR ---
CALLED UPDATED ON PATIENT CONDITION. NEW ORDERS RECEIVED TO TRANSFER PATIENT TO ICU. CHANGED AEROSOL TREATMENTS AT THIS TIME.
[2019-03-07 17:00] VITALS: BP 166/98
--- NOTE | 2019-03-07 17:00 | NUR ---
PATIENT TRANSFERRED TO ICU 6. REPORT GIVEN TO OREN AGEE.
--- NOTE | 2019-03-07 17:00 | NUR ---
RECIEVED IN ICCU FOR A SEVERE ASTHMA ATTACK, PT WITH BARKY HOARSE COUGH, ANXIOUS, DR STEVENS HERE AT BEDSIDE, PER PT SHE WALKED AROUND THE VIERA ON 5E AND SMELLED PERFUME/COLOGNE THAT SET HER OFF RESP SLIGHTLY LABORED BUT IN NO RESP DISTRESS, POX 96 ON ROOM AIR, NO WHEEZES NEW IV STARTED LEFT WRIST, IV ATIVAN 0.5 GIVEN WITH GOOD RESULTS
[2019-03-07 20:00] VITALS: BP 121/67
[2019-03-08 00:09] VITALS: BP 122/74
[2019-03-08 04:00] VITALS: BP 128/73
--- NOTE | 2019-03-08 05:47 | NUR ---
PATIENT COUGHING THIS MORE SAYING IT FEELS LIKE A TICKLE IN HER THROAT SHE ALSO STATED THAT SHE FEELS LIKE THINGS ARE TRYING TO LOOSEN UP AND COME OUT.
[2019-03-08 06:36] LABS: BASO % 0.5 % (0.0-1.0); EOS % 0.3 % (1.0-4.0); HEMATOCRIT 38.2 % (37.0-47.0); HEMOGLOBIN 12.4 g/dl (12.0-16.0); LYMPH # 1.9 10*3/uL (1.3-4.4); LYMPH % 25.1 % (27.0-41.0); MEAN CELL VOLUME 88.6 fl (81.0-99.0); MEAN CORPUSCULAR HGB 28.8 pg (27.0-31.0); MEAN CORPUSCULAR HGB CONC 32.5 g/dl (33.0-37.0); MEAN PLATELET VOLUME 11.1 fl (9.6-12.3); MONO # 0.6 10*3/uL (0.1-1.0); MONO % 7.3 % (3.0-9.0); NEUT # 5.1 10*3/uL (2.3-7.9); NEUT % 65.5 % (47.0-73.0); PLATELET COUNT AUTOMATED 243 10*3/uL (130-400); RED BLOOD COUNT 4.31 10*6/uL (4.10-5.10); RED CELL DISTRI WIDTH 13.2 % (0-14.5); WHITE BLOOD COUNT 7.7 10*3/uL (4.8-10.8)
[2019-03-08 06:42] LABS: ALBUMIN 3.1 gm/dl (3.1-4.5); ALKALINE PHOSPHATASE 113 U/L (45-117); BUN 14 mg/dl (7-24); CHLORIDE 103 mmol/L (98-107); CREATININE 0.75 mg/dL (0.55-1.02); POTASSIUM 4.1 mmol/L (3.5-5.1); SGOT/AST 46 IU/L (3-35); SGPT/ALT 138 U/L (12-78); SODIUM 136 mmol/L (136-145); TOTAL PROTEIN 6.5 gm/dL (6.4-8.2)
[2019-03-08 08:00] VITALS: BP 130/70
--- NOTE | 2019-03-08 08:20 | NUR ---
ON ASSESSMENT PATIENT IS LISTLESS, ORIENTED, FLAT AFFECT. SHE HAS A FREQUENT HARSH, CONGESTED COUGH. AUDIBLE WHEEZE. IV FLUIDS CONTINUE. PT ABLE TO REPOSITION HERSELF FOR COMFORT. OFFERS NO VOICED C/O PAIN. SEE ALL APPROPRIATE INTERVENTIONS.
--- NOTE | 2019-03-08 08:59 | NUR ---
AFTER DR BARRERA VISITED, PT CALLED ME TO THE ROOM, CRYING, ASKING IF DR BARRERA THINKS SHE CAN GO HOME. DR BARRERA INFORMED AND IS NOW BACK IN THE ROOM, TALKING WITH HER.
--- NOTE | 2019-03-08 10:20 | NUR ---
PT CALMER SINCE SPEAKING WITH DR BARRERA. SHE ATE BREAKFAST, AND IS RESTING EASILY ON HER RIGHT SIDE.
--- NOTE | 2019-03-08 11:23 | NUR ---
Shift chart check completed.24 HR chart check completed.
[2019-03-08 11:50] VITALS: BP 138/88
[2019-03-08 16:00] VITALS: BP 137/91
--- NOTE | 2019-03-08 18:26 | NUR ---
PT'S MOTHER ARRIVED, PT DEVELOPED TACHYPNEA, INCREASED WHEEZE AND COUGH. PT THOUGHT IT WAS MOTHER'S JACKET, MAYBE FABRIC SOFTNER. RESPIRATORY CAME AND GAVE A PRN TREATMENT. DR BARRERA WAS CALLED AND UPDATED ON THE EVENTS. ORDERS RECEIVED.
[2019-03-08 19:44] VITALS: BP 131/92
[2019-03-09] VITALS: BP 140/84
[2019-03-09 04:00] VITALS: BP 146/94
[2019-03-09 06:39] LABS: ALBUMIN 3.4 gm/dl (3.1-4.5); ALKALINE PHOSPHATASE 124 U/L (45-117); BUN 19 mg/dl (7-24); CHLORIDE 97 mmol/L (98-107); CREATININE 0.66 mg/dL (0.55-1.02); POTASSIUM 3.8 mmol/L (3.5-5.1); SGOT/AST 27 IU/L (3-35); SGPT/ALT 122 U/L (12-78); SODIUM 132 mmol/L (136-145)
--- NOTE | 2019-03-09 07:52 | NUR ---
Shift chart check completed.
[2019-03-09 08:00] VITALS: BP 142/64
--- NOTE | 2019-03-09 11:12 | NUR ---
SLEEPING WITH HOB ELEVATED
[2019-03-09 12:00] VITALS: BP 137/63
[2019-03-09 16:00] VITALS: BP 128/64
--- NOTE | 2019-03-09 19:26 | NUR ---
ASSUMED CARE OF PATIENT AT THIS TIME. ASSESSMENT COMPLETED. VITAL SIGNS STABLE. 98% PULSE OX ON RA. NORMAL SINUS ON MONITOR. BP WNL. DENIES ANY DISCOMFORTS. NO WHEEZING NOTED IN LUNGS OR TRACHEAL AREA. NO OTHER COMPLAINTS EXPRESSED AT THIS TIME. SITTING UP IN BED, TEXTING ON HER PHONE. RESPIRATORY IN TO SEE PATIENT FOR ROUTINE TREATMENT. CALL LIGHT WITHIN REACH.
[2019-03-09 19:59] VITALS: BP 122/78
--- NOTE | 2019-03-09 21:47 | NUR ---
PATIENT SITTING UP IN BED. RECEIVING PM MEDICATIONS WITHOUT ANY ISSUE. CALL LIGHT IN REACH. DR MOORE CALLED TO CHANGE DOSAGE OF RESTORIL IN CASE NEEDED DUE TO INEFFECTIVENESS LAST NIGHT.
--- NOTE | 2019-03-09 23:50 | NUR ---
PATIENT RECEIVED RESTORIL FOR INSOMNIA.
[2019-03-10] VITALS: BP 132/77
[2019-03-10 04:00] VITALS: BP 130/67
[2019-03-10 08:00] VITALS: BP 136/74
[2019-03-10 12:00] VITALS: BP 136/48
--- NOTE | 2019-03-10 13:38 | NUR ---
DR BARRERA HERE - OK TO DISCHARGE HOME. DR HUERTAS MADE AWARE
[2019-03-10] MEDS ORDERED: DOXEPIN HCL10 MG PO (13:40)
[2019-03-10] MEDS ORDERED: MONTELUKAST SOD10 MG PO (13:40)
[2019-03-10] MEDS ORDERED: FLUTICASONE-SA1 EAC5 INH (13:47)
[2019-03-10] MEDS ORDERED: PREDNISONE10 MG PO (13:48)
--- NOTE | 2019-03-10 14:28 | NUR ---
FORENSIC AUDIT EXPERT REMOVED. Hep Lock discontinued. Site asymptomatic. Pressure applied. Sterile dressing applied. Discharge instructions reviewed with patient/family. Patient receptive and verbalizes understanding. Follow-up care arranged. Written instructions given to patient/family. FROILAN BIGGS
--- NOTE | 2019-03-10 14:45 | NUR ---
PATIENT AMBULATED OUT WITH BELONGINGS
== END 2019-03-10 14:45 | disposition home or self-care (01) | DRG 871 ==
LOC: ED 12:16 → 5E 14:45 → EDHOLD 14:45 → 5E 15:07 → ICCU 03-07 17:19
PROVIDERS: Emergency Medicine; Hospitalist; Internal Medicine; Student in an Organized Health Care Education/Training Program; ADMIT Family Medicine
DX: A41.9 Sepsis, unspecified organism (principal); J18.9 Pneumonia, unspecified organism; J45.51 Severe persistent asthma with (acute) exacerbation; Z68.42 Body mass index [BMI] 45.0-49.9, adult; R65.20 Severe sepsis without septic shock; R74.0 Nonspecific elevation of levels of transaminase and lactic acid dehydrogenase [LDH]; E87.6 Hypokalemia; E11.65 Type 2 diabetes mellitus with hyperglycemia; I10 Essential (primary) hypertension; F32.9 Major depressive disorder, single episode, unspecified; K21.9 Gastro-esophageal reflux disease without esophagitis; E78.1 Pure hyperglyceridemia; E03.9 Hypothyroidism, unspecified; E66.01 Morbid (severe) obesity due to excess calories; E78.5 Hyperlipidemia, unspecified; F41.1 Generalized anxiety disorder; J20.9 Acute bronchitis, unspecified; G47.00 Insomnia, unspecified; T38.0X5A Adverse effect of glucocorticoids and synthetic analogues, initial encounter; Y92.238 Other place in hospital as the place of occurrence of the external cause; Z87.01 Personal history of pneumonia (recurrent); Z90.49 Acquired absence of other specified parts of digestive tract; Z98.891 History of uterine scar from previous surgery; Z81.8 Family history of other mental and behavioral disorders; Z82.49 Family history of ischemic heart disease and other diseases of the circulatory system; Z79.899 Other long term (current) drug therapy

== ENCOUNTER 2019-03-11 21:33 | Emergency (ER) | payer OTHER ==
[~2019-03-11] VITALS: Ht 162.5 cm; Wt 126.1 kg
[~2019-03-11 21:33] MED LIST changes: +DOXEPIN HCL10 MG PO; +FLUTICASONE-SA1 EAC5 INH; +GLIPIZIDE10 M2 PO; +MONTELUKAST SOD10 MG PO; +OMEPRAZOLE MAGN20 MG PO; +Synthroid,Levo50 MCG PO; +VITAMIN D350000 UNIT PO
[2019-03-11 21:35] VITALS: BP 149/83
[2019-03-11 22:11] LABS: BASO % 0.3 % (0.0-1.0); EOS % 0.2 % (1.0-4.0); HEMATOCRIT 45.6 % (37.0-47.0); HEMOGLOBIN 15.1 g/dl (12.0-16.0); LYMPH # 2.5 10*3/uL (1.3-4.4); LYMPH % 20.5 % (27.0-41.0); MEAN CELL VOLUME 87.5 fl (81.0-99.0); MEAN CORPUSCULAR HGB CONC 33.1 g/dl (33.0-37.0); MEAN PLATELET VOLUME 10.7 fl (9.6-12.3); MONO # 0.4 10*3/uL (0.1-1.0); MONO % 2.9 % (3.0-9.0); NEUT # 9.2 10*3/uL (2.3-7.9); NEUT % 75.1 % (47.0-73.0); PLATELET COUNT AUTOMATED 328 10*3/uL (130-400); RED BLOOD COUNT 5.21 10*6/uL (4.10-5.10); RED CELL DISTRI WIDTH 12.7 % (0-14.5); WHITE BLOOD COUNT 12.2 10*3/uL (4.8-10.8)
[2019-03-11 22:25] LABS: ALBUMIN 3.4 gm/dl (3.1-4.5); ALKALINE PHOSPHATASE 163 U/L (45-117); BUN 27 mg/dl (7-24); CHLORIDE 97 mmol/L (98-107); CREATININE 0.98 mg/dL (0.55-1.02); LIPASE 480 U/L (73-393); POTASSIUM 4.5 mmol/L (3.5-5.1); SGOT/AST 35 IU/L (3-35); SGPT/ALT 81 U/L (12-78); SODIUM 130 mmol/L (136-145); TOTAL PROTEIN 7.3 gm/dL (6.4-8.2)
[2019-03-11 22:49] LABS: BILIRUBIN NEGATIVE (NEGATIVE); BLOOD NEGATIVE (NEGATIVE); CLARITY CLEAR (CLEAR); COLOR YELLOW (YELLOW); GLUCOSE 3+ (NEGATIVE); KETONE NEGATIVE (NEGATIVE); LEUKO ESTERASE NEGATIVE (NEGATIVE); NITRITE NEGATIVE (NEGATIVE); UROBILINOGEN 0.2 E.U./dl (0.2-1.0)
[2019-03-11 22:58] LABS: RBC 0-2 rbc/hpf (0-2); WBC 0-2 wbc/hpf (0-5)
== END 2019-03-12 01:36 | disposition home or self-care (01) ==
LOC: ED 21:33
PROVIDERS: Nurse Practitioner Family
DX: E11.65 Type 2 diabetes mellitus with hyperglycemia (principal); I10 Essential (primary) hypertension; J45.909 Unspecified asthma, uncomplicated

== ENCOUNTER → 2019-04-23 | Outpatient (CLI) | payer OTHER | END | disposition home or self-care (01) | LOC: CT 04-22 11:00 | DX: N28.1 Cyst of kidney, acquired (principal); E27.8 Other specified disorders of adrenal gland; K76.0 Fatty (change of) liver, not elsewhere classified; Z90.49 Acquired absence of other specified parts of digestive tract ==

== ENCOUNTER → 2019-08-02 | Outpatient (CLI) | payer OTHER ==
[~2019-08-02] MED LIST changes: +AVPAK AZITHROM250 M1 PO; +HYDROXYCHLOROQ200 M1 PO; +JARDIANCE25 MG PO; +LANTUS SOL100 UNIT/1 SQ; +PREDNISONE20 M1 PO; +Ventolin 02.5 MG/3 M INH
== END | disposition home or self-care (01) ==
LOC: LAB 00:01
DX: R63.5 Abnormal weight gain (principal); E55.9 Vitamin D deficiency, unspecified; G62.9 Polyneuropathy, unspecified

== ENCOUNTER → 2019-08-03 | Outpatient (CLI) | payer OTHER | END | disposition home or self-care (01) | LOC: LAB 09:41 | DX: G62.9 Polyneuropathy, unspecified (principal) ==

== ENCOUNTER 2019-08-05 12:38 | Inpatient (IN) | payer OTHER ==
[~2019-08-05] VITALS: Ht 165.1 cm; Wt 123.0 kg
[~2019-08-05 12:38] MED LIST changes: -AVPAK AZITHROM250 M1 PO; -HYDROXYCHLOROQ200 M1 PO; -JARDIANCE25 MG PO; -LANTUS SOL100 UNIT/1 SQ; -PREDNISONE20 M1 PO; -Ventolin 02.5 MG/3 M INH
[2019-08-05 13:36] LABS: HEMOGLOBIN 15.1 g/dl (12.0-16.0); MEAN CELL VOLUME 85.3 fl (81.0-99.0); MEAN CORPUSCULAR HGB CONC 32.8 g/dl (33.0-37.0); PLATELET COUNT AUTOMATED 458 10*3/uL (130-400); RED BLOOD COUNT 5.39 10*6/uL (4.10-5.10); RED CELL DISTRI WIDTH 14.3 % (0-14.5); WHITE BLOOD COUNT 23.1 10*3/uL (4.8-10.8)
[2019-08-05 13:54] LABS: ALBUMIN 3.7 gm/dl (3.1-4.5); ALKALINE PHOSPHATASE 114 U/L (45-117); BUN 18 mg/dl (7-24); CHLORIDE 108 mmol/L (98-107); CREATININE 0.85 mg/dL (0.55-1.02); POTASSIUM 3.1 mmol/L (3.5-5.1); SGOT/AST 23 IU/L (3-35); SGPT/ALT 41 U/L (12-78); SODIUM 139 mmol/L (136-145); TOTAL PROTEIN 7.6 gm/dL (6.4-8.2)
[2019-08-05 13:56] LABS: BASOPHILS 1 % (0-1); PLATELET SUFFICIENCY HIGH (NORMAL); TOTAL CELLS COUNTED 100 #CELLS; TROPONIN I < 0.015 ng/ml (<0.045)
[2019-08-05 14:02] VITALS: BP 113/65
[2019-08-05] MEDS ORDERED: PREDNISONE20 M1 PO (14:11)
[2019-08-05 16:00] VITALS: BP 124/51
[2019-08-05 17:30] VITALS: BP 124/51
[2019-08-05] MEDS ORDERED: LANTUS SOL100 UNIT/1 SQ (18:50)
[2019-08-05] MEDS ORDERED: Ventolin 02.5 MG/3 M INH (18:51)
[2019-08-05] MEDS ORDERED: ADV 100/50 INH (18:52)
[2019-08-05 20:00] VITALS: BP 121/63
[2019-08-05] MEDS ORDERED: JARDIANCE25 MG PO (20:28)
[2019-08-06] VITALS (7 sets, daily range): BP systolic 112–132; BP diastolic 60–84
[2019-08-06 06:48] LABS: BASO % 0.2 % (0.0-1.0); EOS % 0.1 % (1.0-4.0); HEMATOCRIT 42.9 % (37.0-47.0); HEMOGLOBIN 13.6 g/dl (12.0-16.0); LYMPH # 2.6 10*3/uL (1.3-4.4); LYMPH % 17.7 % (27.0-41.0); MEAN CORPUSCULAR HGB 27.6 pg (27.0-31.0); MEAN CORPUSCULAR HGB CONC 31.7 g/dl (33.0-37.0); MEAN PLATELET VOLUME 10.5 fl (9.6-12.3); MONO # 0.9 10*3/uL (0.1-1.0); MONO % 5.9 % (3.0-9.0); NEUT % 75.3 % (47.0-73.0); PLATELET COUNT AUTOMATED 338 10*3/uL (130-400); RED BLOOD COUNT 4.93 10*6/uL (4.10-5.10); RED CELL DISTRI WIDTH 14.6 % (0-14.5); WHITE BLOOD COUNT 14.6 10*3/uL (4.8-10.8)
[2019-08-06 06:56] LABS: ALBUMIN 3.5 gm/dl (3.1-4.5); ALKALINE PHOSPHATASE 100 U/L (45-117); BUN 16 mg/dl (7-24); CHLORIDE 107 mmol/L (98-107); CREATININE 0.76 mg/dL (0.55-1.02); PHOSPHOROUS 3.5 mg/dL (2.5-4.9); POTASSIUM 3.9 mmol/L (3.5-5.1); SGOT/AST 17 IU/L (3-35); SGPT/ALT 44 U/L (12-78); SODIUM 139 mmol/L (136-145); TOTAL PROTEIN 7.1 gm/dL (6.4-8.2)
[2019-08-06 17:41] LABS: ARTERIAL BLOOD GAS PH 7.346 (7.35-7.45)
[2019-08-06 19:53] LABS: BASO # 0.1 10*3/uL (0.0-0.1); BASO % 0.4 % (0.0-1.0); EOS # 0.2 10*3/uL (0.0-0.4); EOS % 1.2 % (1.0-4.0); HEMOGLOBIN 12.9 g/dl (12.0-16.0); LYMPH # 3.4 10*3/uL (1.3-4.4); LYMPH % 24.5 % (27.0-41.0); MEAN CORPUSCULAR HGB 27.7 pg (27.0-31.0); MEAN CORPUSCULAR HGB CONC 31.5 g/dl (33.0-37.0); MEAN PLATELET VOLUME 10.2 fl (9.6-12.3); MONO % 7.2 % (3.0-9.0); NEUT # 9.2 10*3/uL (2.3-7.9); NEUT % 66.2 % (47.0-73.0); PLATELET COUNT AUTOMATED 300 10*3/uL (130-400); RED BLOOD COUNT 4.66 10*6/uL (4.10-5.10); RED CELL DISTRI WIDTH 14.6 % (0-14.5); WHITE BLOOD COUNT 13.9 10*3/uL (4.8-10.8)
[2019-08-06 20:08] LABS: ABG BASE EXCESS -0.6 mmol/L (-2.0-2.0); ARTERIAL BLOOD GAS PH 7.354 (7.35-7.45)
[2019-08-06 20:08] LABS: ALBUMIN 3.3 gm/dl (3.1-4.5); ALKALINE PHOSPHATASE 91 U/L (45-117); BUN 26 mg/dl (7-24); CHLORIDE 106 mmol/L (98-107); CREATININE 0.71 mg/dL (0.55-1.02); PHOSPHOROUS 4.2 mg/dL (2.5-4.9); POTASSIUM 3.6 mmol/L (3.5-5.1); SGOT/AST 28 IU/L (3-35); SGPT/ALT 45 U/L (12-78); SODIUM 140 mmol/L (136-145); TOTAL PROTEIN 6.9 gm/dL (6.4-8.2)
[2019-08-07] VITALS (12 sets, daily range): BP systolic 106–127; BP diastolic 51–86
[2019-08-07 06:04] LABS: ALBUMIN 3.2 gm/dl (3.1-4.5); ALKALINE PHOSPHATASE 82 U/L (45-117); BUN 28 mg/dl (7-24); CHLORIDE 107 mmol/L (98-107); CREATININE 0.68 mg/dL (0.55-1.02); POTASSIUM 3.4 mmol/L (3.5-5.1); SGOT/AST 23 IU/L (3-35); SGPT/ALT 40 U/L (12-78); SODIUM 140 mmol/L (136-145); TOTAL PROTEIN 6.4 gm/dL (6.4-8.2)
[2019-08-07 06:17] LABS: BASO # 0.1 10*3/uL (0.0-0.1); BASO % 0.4 % (0.0-1.0); EOS # 0.2 10*3/uL (0.0-0.4); EOS % 1.8 % (1.0-4.0); HEMATOCRIT 39.3 % (37.0-47.0); HEMOGLOBIN 12.5 g/dl (12.0-16.0); LYMPH # 4.2 10*3/uL (1.3-4.4); LYMPH % 33.5 % (27.0-41.0); MEAN CELL VOLUME 89.1 fl (81.0-99.0); MEAN CORPUSCULAR HGB 28.3 pg (27.0-31.0); MEAN CORPUSCULAR HGB CONC 31.8 g/dl (33.0-37.0); MEAN PLATELET VOLUME 10.7 fl (9.6-12.3); MONO % 7.6 % (3.0-9.0); NEUT % 56.3 % (47.0-73.0); PLATELET COUNT AUTOMATED 273 10*3/uL (130-400); RED BLOOD COUNT 4.41 10*6/uL (4.10-5.10); RED CELL DISTRI WIDTH 14.9 % (0-14.5); WHITE BLOOD COUNT 12.4 10*3/uL (4.8-10.8)
[2019-08-07 07:35] LABS: ABG BASE EXCESS 0.4 mmol/L (-2.0-2.0); ARTERIAL BLOOD GAS PH 7.37 (7.35-7.45)
[2019-08-08] VITALS (10 sets, daily range): BP systolic 99–136; BP diastolic 62–93
[2019-08-08 05:38] LABS: ALBUMIN 3.1 gm/dl (3.1-4.5); ALKALINE PHOSPHATASE 89 U/L (45-117); BUN 20 mg/dl (7-24); CHLORIDE 106 mmol/L (98-107); CREATININE 0.67 mg/dL (0.55-1.02); POTASSIUM 3.3 mmol/L (3.5-5.1); SGOT/AST 17 IU/L (3-35); SGPT/ALT 35 U/L (12-78); SODIUM 140 mmol/L (136-145); TOTAL PROTEIN 6.4 gm/dL (6.4-8.2)
[2019-08-08 05:57] LABS: BASO # 0.1 10*3/uL (0.0-0.1); BASO % 0.5 % (0.0-1.0); EOS # 0.3 10*3/uL (0.0-0.4); EOS % 2.4 % (1.0-4.0); HEMATOCRIT 39.9 % (37.0-47.0); HEMOGLOBIN 12.8 g/dl (12.0-16.0); LYMPH # 3.2 10*3/uL (1.3-4.4); LYMPH % 29.2 % (27.0-41.0); MEAN CELL VOLUME 88.5 fl (81.0-99.0); MEAN CORPUSCULAR HGB 28.4 pg (27.0-31.0); MEAN CORPUSCULAR HGB CONC 32.1 g/dl (33.0-37.0); MEAN PLATELET VOLUME 10.8 fl (9.6-12.3); MONO # 0.9 10*3/uL (0.1-1.0); MONO % 8.4 % (3.0-9.0); NEUT # 6.5 10*3/uL (2.3-7.9); NEUT % 59.1 % (47.0-73.0); PLATELET COUNT AUTOMATED 275 10*3/uL (130-400); RED BLOOD COUNT 4.51 10*6/uL (4.10-5.10); RED CELL DISTRI WIDTH 14.9 % (0-14.5); WHITE BLOOD COUNT 11.1 10*3/uL (4.8-10.8)
[2019-08-08 07:45] LABS: ABG BASE EXCESS 2.6 mmol/L (-2.0-2.0); ARTERIAL BLOOD GAS PH 7.415 (7.35-7.45)
[2019-08-09 06:18] LABS: BASO # 0.1 10*3/uL (0.0-0.1); BASO % 0.5 % (0.0-1.0); EOS # 0.3 10*3/uL (0.0-0.4); EOS % 3.6 % (1.0-4.0); HEMATOCRIT 40.4 % (37.0-47.0); HEMOGLOBIN 12.9 g/dl (12.0-16.0); LYMPH # 3.4 10*3/uL (1.3-4.4); LYMPH % 36.5 % (27.0-41.0); MEAN CELL VOLUME 86.7 fl (81.0-99.0); MEAN CORPUSCULAR HGB 27.7 pg (27.0-31.0); MEAN CORPUSCULAR HGB CONC 31.9 g/dl (33.0-37.0); MEAN PLATELET VOLUME 10.2 fl (9.6-12.3); MONO # 0.7 10*3/uL (0.1-1.0); MONO % 7.7 % (3.0-9.0); NEUT # 4.7 10*3/uL (2.3-7.9); NEUT % 51.4 % (47.0-73.0); PLATELET COUNT AUTOMATED 261 10*3/uL (130-400); RED BLOOD COUNT 4.66 10*6/uL (4.10-5.10); RED CELL DISTRI WIDTH 14.4 % (0-14.5); WHITE BLOOD COUNT 9.2 10*3/uL (4.8-10.8)
[2019-08-09 06:32] LABS: ALKALINE PHOSPHATASE 78 U/L (45-117); BUN 14 mg/dl (7-24); CHLORIDE 107 mmol/L (98-107); POTASSIUM 3.6 mmol/L (3.5-5.1); SGOT/AST 14 IU/L (3-35); SGPT/ALT 30 U/L (12-78); SODIUM 142 mmol/L (136-145); TOTAL PROTEIN 6.2 gm/dL (6.4-8.2)
[2019-08-09 08:00] VITALS: BP 118/60
[2019-08-09 12:00] VITALS: BP 95/51
[2019-08-09] MEDS ORDERED: HYDROXYCHLOROQ200 M1 PO (12:53)
[2019-08-09] MEDS ORDERED: AVPAK AZITHROM250 M1 PO (12:53)
== END 2019-08-09 14:20 | disposition home or self-care (01) | DRG 871 ==
LOC: ED 12:38 → 5E 15:31 → EDHOLD 15:31 → 5E 17:20
PROVIDERS: Emergency Medicine; Family Medicine; Internal Medicine; Internal Medicine Critical Care Medicine; Registered Nurse; ADMIT Internal Medicine
PROC: 0BH17EZ Insertion of Endotracheal Airway into Trachea, Via Natural or Artificial Opening (ICD-10-PCS; principal; 2019-08-06)
PROC: 5A1945Z Respiratory Ventilation, 24-96 Consecutive Hours (ICD-10-PCS; principal; 2019-08-06)
PROC: 5A09357 Assistance with Respiratory Ventilation, Less than 24 Consecutive Hours, Continuous Positive Airway Pressure (ICD-10-PCS; principal; 2019-08-06)
DX: A41.9 Sepsis, unspecified organism (principal); J15.6 Pneumonia due to other Gram-negative bacteria; J96.01 Acute respiratory failure with hypoxia; J45.901 Unspecified asthma with (acute) exacerbation; E87.2 Acidosis; Z68.42 Body mass index [BMI] 45.0-49.9, adult; E87.6 Hypokalemia; I10 Essential (primary) hypertension; E11.65 Type 2 diabetes mellitus with hyperglycemia; E03.9 Hypothyroidism, unspecified; E55.9 Vitamin D deficiency, unspecified; K21.9 Gastro-esophageal reflux disease without esophagitis; R68.89 Other general symptoms and signs; F41.9 Anxiety disorder, unspecified; E66.9 Obesity, unspecified; G47.33 Obstructive sleep apnea (adult) (pediatric); Z79.899 Other long term (current) drug therapy; Z90.49 Acquired absence of other specified parts of digestive tract; Z82.49 Family history of ischemic heart disease and other diseases of the circulatory system

== ENCOUNTER → 2019-08-15 | Outpatient (CLI) | payer OTHER ==
[~2019-08-15] MED LIST changes: +AVPAK AZITHROM250 M1 PO; +HYDROXYCHLOROQ200 M1 PO; +JARDIANCE25 MG PO; +LANTUS SOL100 UNIT/1 SQ; +PREDNISONE20 M1 PO; +Ventolin 02.5 MG/3 M INH
[2019-08-15 15:30] LABS: ALBUMIN 3.4 gm/dl (3.1-4.5); ALKALINE PHOSPHATASE 96 U/L (45-117); BUN 19 mg/dl (7-24); CHLORIDE 104 mmol/L (98-107); CHOLESTEROL 156 mg/dL (<200); CREATININE 0.68 mg/dL (0.55-1.02); FREE T4 1.08 ng/dl (0.76-1.46); HDL CHOLESTEROL 40 mg/dl (40-60); LDL CHOLESTEROL 82 mg/dL (9-159); SGOT/AST 21 IU/L (3-35); SGPT/ALT 37 U/L (12-78); SODIUM 140 mmol/L (136-145); TOTAL PROTEIN 7.2 gm/dL (6.4-8.2); TRIGLYCERIDES 172 mg/dl (<150); VLDL CHOLESTEROL 34 mg/dL (6-40)
[2019-08-15 15:34] LABS: THYROID STIM HORMONE (HS) 0.794 uIU/ml (0.358-4.75)
[2019-08-16 07:07] LABS: CREATININE,URINE 184.1 mg/dL (Not Estab.)
[2019-08-17 00:06] LABS: TESTOSTERONE FREE, (DIRECT) 1.8 pg/mL (0.0-4.2)
[2019-08-17 10:03] LABS: ALDOSTERONE, SERUM 11.3 ng/dL (0.0-30.0)
== END | disposition home or self-care (01) ==
LOC: LAB 14:05
PROVIDERS: Internal Medicine Endocrinology, Diabetes & Metabolism
DX: E11.9 Type 2 diabetes mellitus without complications (principal); E55.9 Vitamin D deficiency, unspecified; R63.5 Abnormal weight gain; G62.9 Polyneuropathy, unspecified

== ENCOUNTER 2019-12-08 20:23 | Emergency (ER) | payer OTHER ==
[~2019-12-08] VITALS: Ht 162.5 cm; Wt 122.5 kg
[~2019-12-08 20:23] MED LIST changes: +AUGMENTIN 875875 MG PO; +FLONASE ALLERG9.9 ML NAS
[2019-12-08 20:37] VITALS: BP 138/85
[2019-12-08 22:09] LABS: BASO % 0.1 % (0.0-1.0); EOS # 0.2 10*3/uL (0.0-0.4); EOS % 3.4 % (1.0-4.0); HEMATOCRIT 43.3 % (37.0-47.0); LYMPH # 3.5 10*3/uL (1.3-4.4); LYMPH % 52.2 % (27.0-41.0); MEAN CELL VOLUME 83.8 fl (81.0-99.0); MEAN CORPUSCULAR HGB 27.3 pg (27.0-31.0); MEAN CORPUSCULAR HGB CONC 32.6 g/dl (33.0-37.0); MONO # 0.8 10*3/uL (0.1-1.0); MONO % 11.5 % (3.0-9.0); NEUT # 2.2 10*3/uL (2.3-7.9); NEUT % 32.4 % (47.0-73.0); PLATELET COUNT AUTOMATED 279 10*3/uL (130-400); RED BLOOD COUNT 5.17 10*6/uL (4.10-5.10); RED CELL DISTRI WIDTH 14.6 % (0-14.5); WHITE BLOOD COUNT 6.7 10*3/uL (4.8-10.8)
[2019-12-08 22:20] LABS: INTERNATIONAL NORM RATIO 0.9 (2.0-3.5)
[2019-12-08 22:25] LABS: ALBUMIN 3.2 gm/dl (3.1-4.5); ALKALINE PHOSPHATASE 106 U/L (45-117); BUN 14 mg/dl (7-24); CHLORIDE 106 mmol/L (98-107); CREATININE 0.69 mg/dL (0.55-1.02); POTASSIUM 3.8 mmol/L (3.5-5.1); SGOT/AST 28 IU/L (3-35); SGPT/ALT 54 U/L (12-78); SODIUM 139 mmol/L (136-145)
[2019-12-08 22:31] LABS: TROPONIN I < 0.015 ng/ml (<0.045)
== END 2019-12-09 00:35 | disposition home or self-care (01) ==
LOC: ED 20:23
PROVIDERS: Physician Assistant
DX: B34.9 Viral infection, unspecified (principal); I10 Essential (primary) hypertension; F41.9 Anxiety disorder, unspecified; F32.9 Major depressive disorder, single episode, unspecified; J45.909 Unspecified asthma, uncomplicated; E11.9 Type 2 diabetes mellitus without complications; Z79.899 Other long term (current) drug therapy

== ENCOUNTER 2020-10-20 23:52 | Emergency (ER) | payer SELFPAY ==
[~2020-10-20] VITALS: Ht 172.7 cm; Wt 125.2 kg
[2020-10-21 00:04] VITALS: BP 191/103
== END 2020-10-21 01:33 | disposition home or self-care (01) ==
LOC: ED 23:52
DX: T78.40XA Allergy, unspecified, initial encounter (principal); E66.9 Obesity, unspecified; Z98.890 Other specified postprocedural states; Z90.49 Acquired absence of other specified parts of digestive tract; Z90.710 Acquired absence of both cervix and uterus; Z79.899 Other long term (current) drug therapy; Y92.89 Other specified places as the place of occurrence of the external cause

== ENCOUNTER 2020-10-21 21:29 | Emergency (ER) | payer SELFPAY ==
[~2020-10-21] VITALS: Ht 162.5 cm; Wt 123.8 kg
[2020-10-21 21:35] VITALS: BP 157/115
== END 2020-10-21 23:53 | disposition home or self-care (01) ==
LOC: ED 21:29
DX: R20.2 Paresthesia of skin (principal); T78.40XA Allergy, unspecified, initial encounter; Z98.890 Other specified postprocedural states; Z90.49 Acquired absence of other specified parts of digestive tract; Z90.710 Acquired absence of both cervix and uterus; Z79.899 Other long term (current) drug therapy; Z79.2 Long term (current) use of antibiotics; Z88.8 Allergy status to other drugs, medicaments and biological substances; Y92.89 Other specified places as the place of occurrence of the external cause

== ENCOUNTER 2020-12-13 03:54 | Inpatient (IN) | payer SELFPAY ==
[2020-12-13] VITALS (8 sets, daily range): BP systolic 122–170; BP diastolic 56–101
[~2020-12-13] VITALS: Ht 162.6 cm; Wt 128.1 kg
[2020-12-13 04:14] LABS: HEMATOCRIT 42.1 % (37.0-47.0); MEAN CELL VOLUME 86.1 fl (81.0-99.0); MEAN CORPUSCULAR HGB 27.8 pg (27.0-31.0); MEAN CORPUSCULAR HGB CONC 32.3 g/dl (33.0-37.0); PLATELET COUNT AUTOMATED 290 10*3/uL (130-400); RED BLOOD COUNT 4.89 10*6/uL (4.10-5.10); RED CELL DISTRI WIDTH 14.5 % (0-14.5); WHITE BLOOD COUNT 12.4 10*3/uL (4.8-10.8)
[2020-12-13 04:32] LABS: ALBUMIN 3.4 gm/dl (3.1-4.5); ALKALINE PHOSPHATASE 128 U/L (45-117); BUN 18 mg/dl (7-24); CHLORIDE 105 mmol/L (98-107); CREATININE 0.59 mg/dL (0.55-1.02); POTASSIUM 3.7 mmol/L (3.5-5.1); SGOT/AST 18 IU/L (3-35); SGPT/ALT 35 U/L (12-78); SODIUM 137 mmol/L (136-145); TOTAL PROTEIN 7.1 gm/dL (6.4-8.2)
[2020-12-13 04:33] LABS: TROPONIN I < 0.015 ng/ml (<0.045)
[2020-12-13 04:54] LABS: PLATELET SUFFICIENCY NORMAL (NORMAL); TOTAL CELLS COUNTED 100 #CELLS
[2020-12-13] MEDS ORDERED: METFORMIN HYDR750 MG PO (09:59)
[2020-12-13] MEDS ORDERED: INVOKANA100 M1 PO (10:02)
[2020-12-13] MEDS ORDERED: PROAIR HFA8.5 GM INH (10:02)
[2020-12-13] MEDS ORDERED: NOVOLOG FL100 UNIT/2 SC (10:04)
[2020-12-13] MEDS ORDERED: LEVEMIR FL100 UNIT/1 SC (10:05)
[2020-12-13] MEDS ORDERED: CRESTOR20 M1 PO (10:07)
[2020-12-13] MEDS ORDERED: ZOLOFT50 MG PO (10:08)
[2020-12-14] VITALS: BP 138/77
[2020-12-14 06:10] LABS: ALBUMIN 3.1 gm/dl (3.1-4.5); ALKALINE PHOSPHATASE 101 U/L (45-117); BUN 27 mg/dl (7-24); CHLORIDE 104 mmol/L (98-107); CHOLESTEROL 168 mg/dL (<200); CREATININE 0.61 mg/dL (0.55-1.02); FREE T4 1.04 ng/dl (0.76-1.46); POTASSIUM 3.9 mmol/L (3.5-5.1); SGOT/AST 17 IU/L (3-35); SGPT/ALT 37 U/L (12-78); SODIUM 137 mmol/L (136-145); TOTAL PROTEIN 6.5 gm/dL (6.4-8.2); TRIGLYCERIDES 170 mg/dl (<150)
[2020-12-14 06:15] LABS: LDL CHOLESTEROL 96 mg/dL (9-159); THYROID STIM HORMONE (HS) 0.273 uIU/ml (0.358-4.75)
[2020-12-14 06:36] LABS: BASO % 0.2 % (0.0-1.0); EOS # 0.1 10*3/uL (0.0-0.4); EOS % 0.7 % (1.0-4.0); HEMATOCRIT 40.2 % (37.0-47.0); LYMPH # 4.2 10*3/uL (1.3-4.4); LYMPH % 26.4 % (27.0-41.0); MEAN CELL VOLUME 86.3 fl (81.0-99.0); MEAN CORPUSCULAR HGB 27.9 pg (27.0-31.0); MEAN CORPUSCULAR HGB CONC 32.3 g/dl (33.0-37.0); MEAN PLATELET VOLUME 10.6 fl (9.6-12.3); MONO # 1.2 10*3/uL (0.1-1.0); MONO % 7.7 % (3.0-9.0); NEUT # 10.4 10*3/uL (2.3-7.9); NEUT % 64.5 % (47.0-73.0); PLATELET COUNT AUTOMATED 309 10*3/uL (130-400); RED BLOOD COUNT 4.66 10*6/uL (4.10-5.10); RED CELL DISTRI WIDTH 14.5 % (0-14.5); WHITE BLOOD COUNT 16.1 10*3/uL (4.8-10.8)
[2020-12-14 08:00] VITALS: BP 114/56
[2020-12-14 12:00] VITALS: BP 123/79
[2020-12-14 16:00] VITALS: BP 112/55
[2020-12-14 20:00] VITALS: BP 112/56
[2020-12-15] VITALS: BP 125/59
[2020-12-15 08:00] VITALS: BP 118/66
[2020-12-15 12:00] VITALS: BP 134/77
[2020-12-15 16:00] VITALS: BP 129/67
[2020-12-15 20:00] VITALS: BP 125/60
[2020-12-16] VITALS: BP 127/72
[2020-12-16 08:27] VITALS: BP 137/76
[2020-12-16] MEDS ORDERED: VICTOZA 3-0.6 MG/0.1 SQ ×2 (08:36→08:45)
[2020-12-16] MEDS ORDERED: CRESTOR20 M1 PO (08:36)
[2020-12-16] MEDS ORDERED: MUCINEX DM 30/61 TAB PO ×2 (08:36→08:45)
[2020-12-16] MEDS ORDERED: DOXYCYCLINE MO100 M1 PO ×2 (08:36→08:45)
[2020-12-16] MEDS ORDERED: ZOLOFT50 MG PO (08:36)
[2020-12-16] MEDS ORDERED: PROAIR HFA8.5 GM INH (08:36)
[2020-12-16] MEDS ORDERED: JARDIANCE25 MG PO ×2 (08:36→08:45)
[2020-12-16] MEDS ORDERED: ADV 500/50 PO ×2 (08:36→08:53)
[2020-12-16] MEDS ORDERED: METFORMIN HYDR750 MG PO ×2 (08:36→08:48)
[2020-12-16] MEDS ORDERED: Synthroid,Levo50 MCG PO ×2 (08:36→08:45)
[2020-12-16] MEDS ORDERED: SERTRALINE HYDR50 MG PO (08:45)
[2020-12-16] MEDS ORDERED: VENT7GM INH (08:45)
[2020-12-16] MEDS ORDERED: PREDNISONE10 MG PO (08:45)
[2020-12-16] MEDS ORDERED: ATORVASTATIN CA20 M1 PO (08:45)
== END 2020-12-16 09:49 | disposition home or self-care (01) | DRG 871 ==
LOC: ED 03:54 → EDHOLD 06:41 → 4E 06:41
PROVIDERS: Emergency Medicine; Internal Medicine; ADMIT Student in an Organized Health Care Education/Training Program; ATTEND Student in an Organized Health Care Education/Training Program
DX: A41.89 Other specified sepsis (principal); J15.6 Pneumonia due to other Gram-negative bacteria; J45.901 Unspecified asthma with (acute) exacerbation; Z68.42 Body mass index [BMI] 45.0-49.9, adult; Z68.44 Body mass index [BMI] 60.0-69.9, adult; E11.9 Type 2 diabetes mellitus without complications; E28.2 Polycystic ovarian syndrome; R65.20 Severe sepsis without septic shock; K21.9 Gastro-esophageal reflux disease without esophagitis; G47.33 Obstructive sleep apnea (adult) (pediatric); I10 Essential (primary) hypertension; E66.01 Morbid (severe) obesity due to excess calories; Z20.822 Contact with and (suspected) exposure to COVID-19; Z90.49 Acquired absence of other specified parts of digestive tract; Z98.891 History of uterine scar from previous surgery; Z88.8 Allergy status to other drugs, medicaments and biological substances; Z79.51 Long term (current) use of inhaled steroids; Z79.4 Long term (current) use of insulin; Z79.899 Other long term (current) drug therapy

== ENCOUNTER → 2021-01-15 | Outpatient (CLI) | payer OTHER ==
[~2021-01-15] MED LIST changes: +ADV 500/50 PO; +ATORVASTATIN CA20 M1 PO; +CRESTOR20 M1 PO; +DOXYCYCLINE MO100 M1 PO; +INVOKANA100 M1 PO; +LEVEMIR FL100 UNIT/1 SC; +METFORMIN HYDR750 MG PO; +MUCINEX DM 30/61 TAB PO; +NOVOLOG FL100 UNIT/2 SC; +SERTRALINE HYDR50 MG PO; +VENT7GM INH; +VICTOZA 3-0.6 MG/0.1 SQ; +ZOLOFT50 MG PO
== END | disposition home or self-care (01) ==
LOC: RAD 11:30
PROVIDERS: ATTEND Nurse Practitioner Family
DX: Z11.1 Encounter for screening for respiratory tuberculosis (principal)

== ENCOUNTER → 2021-04-27 | Outpatient (CLI) | payer OTHER ==
[2021-04-27 09:21] LABS: BASO % 0.4 % (0.0-1.0); EOS # 0.3 10*3/uL (0.0-0.4); EOS % 3.7 % (1.0-4.0); HEMATOCRIT 41.4 % (37.0-47.0); LYMPH # 3.5 10*3/uL (1.3-4.4); LYMPH % 37.7 % (27.0-41.0); MEAN CELL VOLUME 85.2 fl (81.0-99.0); MEAN CORPUSCULAR HGB 27.8 pg (27.0-31.0); MEAN CORPUSCULAR HGB CONC 32.6 g/dl (33.0-37.0); MONO # 0.6 10*3/uL (0.1-1.0); MONO % 6.4 % (3.0-9.0); NEUT # 4.8 10*3/uL (2.3-7.9); NEUT % 51.5 % (47.0-73.0); PLATELET COUNT AUTOMATED 287 10*3/uL (130-400); RED BLOOD COUNT 4.86 10*6/uL (4.10-5.10); RED CELL DISTRI WIDTH 14.1 % (0-14.5); WHITE BLOOD COUNT 9.3 10*3/uL (4.8-10.8)
[2021-04-27 09:39] LABS: ALBUMIN 3.3 gm/dl (3.1-4.5); ALKALINE PHOSPHATASE 102 U/L (45-117); BUN 22 mg/dl (7-24); CHLORIDE 105 mmol/L (98-107); CHOLESTEROL 157 mg/dL (<200); CREATININE 0.62 mg/dL (0.55-1.02); FREE T4 1.07 ng/dl (0.76-1.46); LDL CHOLESTEROL 81 mg/dL (9-159); POTASSIUM 4.3 mmol/L (3.5-5.1); SGOT/AST 19 IU/L (3-35); SODIUM 139 mmol/L (136-145); TOTAL PROTEIN 7.6 gm/dL (6.4-8.2); TRIGLYCERIDES 179 mg/dl (<150)
[2021-04-27 09:53] LABS: SGPT/ALT 34 U/L (12-78)
[2021-04-28 04:06] LABS: LDL CHOLESTEROL (DIRECT) 100 mg/dL (0-99)
[2021-04-28 11:07] LABS: CREATININE,URINE 81.7 mg/dL (Not Estab.)
== END | disposition home or self-care (01) ==
LOC: LAB 08:42
PROVIDERS: ATTEND Physician Assistant
DX: E11.65 Type 2 diabetes mellitus with hyperglycemia (principal); E78.2 Mixed hyperlipidemia; E03.9 Hypothyroidism, unspecified; E11.42 Type 2 diabetes mellitus with diabetic polyneuropathy; R53.83 Other fatigue

== ENCOUNTER → 2021-09-21 | Outpatient (CLI) | payer OTHER | END | disposition home or self-care (01) | LOC: RAD 13:11 | PROVIDERS: ATTEND Podiatrist | DX: M77.52 Other enthesopathy of left foot and ankle (principal); M77.32 Calcaneal spur, left foot; M72.2 Plantar fascial fibromatosis ==

== ENCOUNTER → 2021-11-27 | Outpatient (CLI) | payer OTHER ==
[2021-11-27 09:33] LABS: ALKALINE PHOSPHATASE 125 U/L (45-117); BUN 16 mg/dl (7-24); CHLORIDE 106 mmol/L (98-107); CREATININE 0.64 mg/dL (0.55-1.02); SGOT/AST 27 IU/L (3-35); SGPT/ALT 50 U/L (12-78); SODIUM 141 mmol/L (136-145); TOTAL PROTEIN 7.8 gm/dL (6.4-8.2)
== END | disposition home or self-care (01) ==
LOC: LAB 08:28
PROVIDERS: ATTEND Physician Assistant
DX: R63.5 Abnormal weight gain (principal)

== ENCOUNTER → 2021-12-18 | Outpatient (CLI) | payer OTHER | END | disposition home or self-care (01) | LOC: LAB 08:52 | PROVIDERS: ATTEND Internal Medicine Endocrinology, Diabetes & Metabolism | DX: E11.65 Type 2 diabetes mellitus with hyperglycemia (principal); R63.5 Abnormal weight gain ==

== ENCOUNTER 2022-04-22 15:09 | Emergency (ER) | payer OTHER ==
[~2022-04-22] VITALS: Ht 162.5 cm; Wt 122.5 kg
[2022-04-22 15:12] VITALS: BP 144/69
[2022-04-22 16:11] LABS: BASO % 0.4 % (0.0-1.0); EOS # 0.2 10*3/uL (0.0-0.4); EOS % 2.3 % (1.0-4.0); HEMATOCRIT 44.3 % (37.0-47.0); LYMPH # 3.1 10*3/uL (1.3-4.4); LYMPH % 29.6 % (27.0-41.0); MEAN CELL VOLUME 82.6 fl (81.0-99.0); MEAN CORPUSCULAR HGB 27.2 pg (27.0-31.0); MEAN PLATELET VOLUME 10.4 fl (9.6-12.3); MONO # 0.5 10*3/uL (0.1-1.0); NEUT # 6.6 10*3/uL (2.3-7.9); NEUT % 62.4 % (47.0-73.0); PLATELET COUNT AUTOMATED 295 10*3/uL (130-400); RED BLOOD COUNT 5.36 10*6/uL (4.10-5.10); RED CELL DISTRI WIDTH 14.2 % (0-14.5); WHITE BLOOD COUNT 10.6 10*3/uL (4.8-10.8)
[2022-04-22 16:30] LABS: ALKALINE PHOSPHATASE 97 U/L (46-116); BUN 15 mg/dl (9-23); CHLORIDE 102 mmol/L (98-107); CREATININE 0.53 mg/dL (0.55-1.02); POTASSIUM 3.8 mmol/L (3.4-5.1); SGPT/ALT 25 U/L (10-49); SODIUM 140 mmol/L (136-145); TOTAL PROTEIN 7.2 gm/dL (6.0-8.0)
[2022-04-22] MEDS ORDERED: Ipratropium Brom3 ML INH (18:07)
== END 2022-04-22 18:26 | disposition home or self-care (01) ==
LOC: ED 15:09
PROVIDERS: Nurse Practitioner Family
DX: J45.901 Unspecified asthma with (acute) exacerbation (principal); Z20.822 Contact with and (suspected) exposure to COVID-19; Z88.8 Allergy status to other drugs, medicaments and biological substances; Z90.89 Acquired absence of other organs; Z90.49 Acquired absence of other specified parts of digestive tract; Z98.890 Other specified postprocedural states; Z90.710 Acquired absence of both cervix and uterus

== ENCOUNTER 2024-02-20 01:35 | Emergency (ER) | payer OTHER ==
[~2024-02-20] VITALS: Ht 162.5 cm; Wt 108.9 kg
[~2024-02-20 01:35] MED LIST changes: +Ipratropium Brom3 ML INH
[2024-02-20 01:58] VITALS: BP 125/80
[2024-02-20] MEDS ORDERED: Cyclobenzaprine Hydrochlorid 10 MG TAB PO ONE (03:05)
[2024-02-20] MEDS ORDERED: Acetaminophen/Hydrocodone 5 MG/325 MG TABLET PO ONE (03:05)
[2024-02-20] MEDS ORDERED: CYCLOBENZAPRINE10 MG PO (06:09)
[2024-02-20] MEDS ORDERED: HYDROCODONE-AC1 EAC1 PO (06:25)
== END 2024-02-20 06:16 | disposition home or self-care (01) ==
LOC: ED 01:35
DX: M25.511 Pain in right shoulder (principal); M89.9 Disorder of bone, unspecified; E11.9 Type 2 diabetes mellitus without complications; I10 Essential (primary) hypertension; E03.9 Hypothyroidism, unspecified; J45.909 Unspecified asthma, uncomplicated; F32.A Depression, unspecified; K21.9 Gastro-esophageal reflux disease without esophagitis; E78.1 Pure hyperglyceridemia; Z88.8 Allergy status to other drugs, medicaments and biological substances; Z90.49 Acquired absence of other specified parts of digestive tract; Z90.89 Acquired absence of other organs; Z98.890 Other specified postprocedural states

== ENCOUNTER → 2024-02-22 | Outpatient (CLI) | payer OTHER ==
[~2024-02-22] MED LIST changes: +CYCLOBENZAPRINE10 MG PO; +HYDROCODONE-AC1 EAC1 PO
[2024-02-22 09:17] LABS: BASO # 0.1 10*3/uL (0.0-0.1); BASO % 0.6 % (0.0-1.0); EOS # 0.3 10*3/uL (0.0-0.4); HEMATOCRIT 41.9 % (37.0-47.0); LYMPH # 4.1 10*3/uL (1.3-4.4); LYMPH % 45.2 % (27.0-41.0); MEAN CELL VOLUME 87.3 fl (81.0-99.0); MEAN CORPUSCULAR HGB 28.5 pg (27.0-31.0); MEAN CORPUSCULAR HGB CONC 32.7 g/dl (33.0-37.0); MEAN PLATELET VOLUME 10.1 fl (9.6-12.3); MONO # 0.7 10*3/uL (0.1-1.0); NEUT # 3.9 10*3/uL (2.3-7.9); PLATELET COUNT AUTOMATED 241 10*3/uL (130-400); RED CELL DISTRI WIDTH 13.4 % (0-14.5)
== END | disposition home or self-care (01) ==
LOC: LAB 08:42
PROVIDERS: ATTEND Orthopaedic Surgery
DX: R53.83 Other fatigue (principal); M25.511 Pain in right shoulder

== ENCOUNTER → 2024-03-19 | Outpatient (CLI) | payer OTHER | END | disposition home or self-care (01) | LOC: MRI 03-18 08:00 | PROVIDERS: ATTEND Orthopaedic Surgery | DX: S14.8XXA Injury of other specified nerves of neck, initial encounter (principal); M19.011 Primary osteoarthritis, right shoulder; M25.511 Pain in right shoulder; X58.XXXA Exposure to other specified factors, initial encounter; Y93.89 Activity, other specified; Y92.89 Other specified places as the place of occurrence of the external cause; Y99.8 Other external cause status ==